=== PATIENT | male | born 1955 | race Caucasian/White ===

== ENCOUNTER 2022-10-31 20:28 | Observation (INO) | payer MEDICARE, SELFPAY ==
--- NOTE | ~2022-10-31 | CT_ITS ---
EXAMINATION: CT ANGIOGRAM NECK WITH CONTRAST CT ANGIOGRAM BRAIN WITH CONTRAST CLINICAL INFORMATION: Transient ischemic attack. COMPARISON: None. TECHNIQUE: Test bolus sequences followed by intravenous administration 70 mL of Omnipaque 350. Helical imaging was performed in the axial plane from the thoracic inlet to the skull vertex. Delayed postcontrast imaging of the head was also performed. The data was processed at the ct scan technologist workstation for generation of MIP sequences. Angled MIPs and volume rendered reformatted images were also generated at an offline 3D workstation under concurrent supervision. Stenoses are assessed in accordance with NASCET criteria unless otherwise indicated. This CT examination was performed using dose optimization techniques as appropriate, variously including the following: *Automated exposure control *Adjustment of mA and/or kV according to patient size (this includes techniques or standardized protocols for targeted exams where dose is matched to indication/reason for exam; i.e. extremities or head) *Use of iterative reconstruction technique DLP: 906 mGy-cm FINDINGS: BRAIN: There is no intracranial hemorrhage, hydrocephalus, extra-axial surface collection, midline shift, or other herniation pattern. Ewing to white matter differentiation is diffusely maintained without evidence of an evolved acute territorial infarct. The basilar cisterns are preserved. No significant soft tissue abnormality. No acute osseous abnormality. Small mucous retention cysts in the maxillary sinuses. No air-fluid levels. The mastoids and middle ear cavities are clear. 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 CERVICAL SOFT TISSUES AND LUNG APICES: Normal soft tissues of the neck. No pathologically enlarged lymph nodes. Patent airways. Normal thyroid gland. NECK CTA: There is a classic 3 vessel configuration of the aortic arch. Proximal arch vessels are non-stenotic. Dominant left vertebral artery. No significant ostial stenosis is visualized on either side. Both vertebral arteries are widely patent throughout their extracranial cervical course. Both common and internal carotid arteries are normal in course and caliber. Atherosclerotic plaques noted in the carotid bifurcations without significant stenoses. BRAIN CTA: There is normal opacification of major intracranial arteries. No focal flow-limiting stenosis nor discrete proximal large artery occlusion. Mild atherosclerotic disease of the internal carotid arteries. Timing of the contrast bolus allows assessment of the major dural venous sinuses, which all opacify normally. CT/CT angio head neck IMPRESSION: 1. No acute intracranial findings. 2. No acute arterial occlusions and no significant arterial stenoses within the head or neck.
[2022-10-31 20:38] VITALS: BP 178/92; PULSE 77; RESP 19; TEMP 36.4; O2SAT 97; BMI 31.6
--- NOTE | 2022-10-31 21:02 | ECG_ITS ---
Test Reason : WEAKNESS Blood Pressure : / mmHG Vent. Rate : 070 BPM Atrial Rate : 070 BPM P-R Int : 182 ms QRS Dur : 090 ms QT Int : 382 ms P-R-T Axes : 050 -49 013 degrees QTc Int : 412 ms Normal sinus rhythm Left axis deviation cannot exclude Inferior infarct , age undetermined Abnormal ECG No previous ECGs available Referred By: Chata Sanders Electronically Signed By:NIRALI WALLACE
--- NOTE | 2022-10-31 21:07 | ED.NEUROSD ---
HPI - Neuro Symptoms/Deficit General Chief Complaint: Weakness Stated Complaint: Stroke like symptoms Time Seen by Provider: 10/31/22 20:53 Source: patient Mode of arrival: ambulatory Limitations: no limitations History of Present Illness HPI Narrative: Patient comes to the emergency room complaining of 1 episode of dizziness, difficulty finding words and speaking, and complete loss of sensation and function of the left lower extremity. Patient states that all of this lasted approximately 30 seconds, for the dizziness, sensation that he was going to fall and hit the ground lasted 15 minutes. Of this happen approximately 2 weeks ago. Today, patient spoke to his sister, who is an ED nurse. Patient's sister explained to him that his symptoms sound like a TIA, and explained to the patient that this may be a precursor to a stroke. Therefore, patient decided to come to the emergency room. Patient states that he has history of hypertension and a AAA in the thoracic area, states that he has it checked every year, last time was at 4 cm. Patient denies chest pain or shortness of breath. Patient also states that he had similar TIA symptoms approximately 4-5 years ago. Related Data Allergies Allergy/AdvReac Type Severity Reaction Status Date / Time No Known Allergies Allergy Unverified 08/03/20 18:54 [No Known Allergies*] Review of Systems Review of Systems: Constitutional : No Weight loss, No Fever, No Chills, No Night Sweats, No Fatigue, No Malaise ENT/Mouth : No Hearing loss, No Ear Pain, No Nasal Congestion, No Sinus Pain, No Hoarseness, No sore throat, No Rhinorrhea, No Swallowing Difficulty Eyes: No Eye Pain, No Swelling, No Redness, No Foreign Body, No Discharge, No Vision Changes Cardiovascular : No Chest Pain, No SOB, No Dyspnea on Exertion, No Orthopnea, No Edema, No Palpitations Respiratory : No Cough, No Sputum, No Wheezing, No Smoke Exposure, No Dyspnea Gastrointestinal : No Nausea, No Vomiting, No Diarrhea, No Constipation, No abdominal Pain, No Hematochezia, No Melena Genitourinary : no irregular bleeding, No Dysuria, No Urinary Frequency, No Hematuria, No Urinary Incontinence, No Urgency, No Flank Pain, No Urinary Flow Changes, No Hesitancy Musculoskeletal : No joint pain, No Myalgias, No Joint Swelling Skin : No Skin Lesions, No rash Neuro : At this time, patient is asymptomatic, however, patient had TIA symptoms including severe dizziness, unable to find words and unable to speak, and complete loss of sensation and function in the left lower extremity Psych : No Anxiety/Panic, No Depression, No SI/HI/AH/VH, No Social Issues, Heme/Lymph: No Bruising, No Bleeding,No Lymphadenopathy Endocrine : No Polyuria, No Polydipsia, No Temperature Intolerance [facility] Past Medical History Medical History (Updated 11/01/22 @ 00:55 by Chata Sanders MD) HTN (hypertension) with goal to be determined Thoracic aortic aneurysm (TAA) Social History Social History Alcohol intake: never Smoked in Last 30 Days: No Use of substances other than those prescribed or required for medical reasons: No Advance Directives: No Advance Directives Information Provided: No Physical Exam Vital Signs: Vital Signs: Last Vital Signs Temp 97.9 F 11/01/22 00:13 Pulse 70 11/01/22 00:13 Resp 12 11/01/22 00:13 BP 156/93 H 11/01/22 00:13 Pulse Ox 98 11/01/22 00:13 O2 Del Method 11/01/22 00:13 BMI result Body Mass Index 31.6 Const: Other: Appearance: Alert. Oriented X3. No acute distress. Eyes: Pupils equal, round and reactive to light. ENT: Pharynx normal. Neck: Normal inspection. Neck supple. No lymph nodes noted. No crepitus CVS: Normal heart rate and rhythm. Pulses normal. Normal S1 and S2 Respiratory: No respiratory distress. Breath sounds normal. No Wheezing. No rales Abdomen: Soft and nontender. No rigidity. No distention. Skin: Skin warm and dry. Normal skin color. Normal skin turgor. Extremities: No lower extremity edema. No Lacerations. No Rash Neuro: Oriented X 3. No motor deficit. No sensory deficit. Moving all extremities. No slurred speech. CN 2 through 12 grossly intact Psych: calm, cooperative, normal affect Course Course Course Narrative: Patient's NIH score is within normal limits, CTA within normal limits. Discussed the patient with Dr. Bliss, patient will be admitted for further evaluation. Patient remains asymptomatic. BRAIN: There is no intracranial hemorrhage, hydrocephalus, extra-axial surface collection, midline shift, or other herniation pattern. Ewing to white matter differentiation is diffusely maintained without evidence of an evolved acute territorial infarct. The basilar cisterns are preserved. No significant soft tissue abnormality. No acute osseous abnormality. Small mucous retention cysts in the maxillary sinuses. No air-fluid levels. The mastoids and middle ear cavities are clear. 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 CERVICAL SOFT TISSUES AND LUNG APICES: Normal soft tissues of the neck. No pathologically enlarged lymph nodes. Patent airways. Normal thyroid gland. NECK CTA: There is a classic 3 vessel configuration of the aortic arch. Proximal arch vessels are non-stenotic. Dominant left vertebral artery. No significant ostial stenosis is visualized on either side. Both vertebral arteries are widely patent throughout their extracranial cervical course. Both common and internal carotid arteries are normal in course and caliber. Atherosclerotic plaques noted in the carotid bifurcations without significant stenoses. BRAIN CTA: There is normal opacification of major intracranial arteries. No focal flow-limiting stenosis nor discrete proximal large artery occlusion. Mild atherosclerotic disease of the internal carotid arteries. Timing of the contrast bolus allows assessment of the major dural venous sinuses, which all opacify normally. CT/CT angio head neck IMPRESSION: 1.? No acute intracranial findings. 2.? No acute arterial occlusions and no significant arterial stenoses within the head or neck. Medications Administered Discontinued Medications Generic Name Dose Route Start Last Admin Trade Name Freq PRN Reason Stop Dose Admin Iohexol 70 ml 10/31/22 23:32 10/31/22 23:33 Iohexol 350 Mg/Ml 100 Ml Infus..Btl IV 10/31/22 23:33 70 ml ONCE ONE Administration Medical Decision Making Medical Decision Making [facility] Narrative: Is the 2nd time the patient has TIA like symptoms. Patient has a significant history of AAA and hypertension. I discussed with the patient that he needs a thorough evaluation and admission has been considered. Differential Diagnosis Differential Diagnoses: The differential diagnosis associated with the presentation includes (TIA, paresthesias) Admission/Observation Consideration of admission/observation: Escalation of care including admission/observation considered (Patient likely had a TIA, this is the 2nd time that patient has similar symptoms. Patient admitted for further evaluation.) Consult Healthcare Provider Management of the patient was discussed with: Hospitalist (I discussed the patient with Dr. Bliss, we both agreed that the patient needs further evaluation) Lab Data [facility] Lab Attestation statement: I reviewed the patient's lab results. Result Diagrams: 10/31/22 21:53 10/31/22 21:53 Labs: Lab Results 10/31/22 10/31/22 10/31/22 Range/Units 21:53 21:53 21:53 WBC 6.4 (4.8-10.8) X10*3/uL RBC 4.49 L (4.60-5.80) X10*6/uL Hgb 13.0 L (14.0-18.0) g/dl Hct 39.0 L (42.0-52.0) % MCV 86.9 (80.0-98.0) fL MCH 29.0 (27.0-33.0) pg MCHC 33.3 (31.0-36.0) g/dl RDW 12.3 (11.0-16.0) % Plt Count 193 (160-400) X10*3/uL MPV 9.8 (9.4-12.4) fL Immature Gran % (Auto) 0.3 (0.0-0.4) % Neut % (Auto) 58.4 (45-73) % Lymph % (Auto) 28.4 (20-40) % [place] % (Auto) 9.3 (2-11) % Eos % (Auto) 3.1 (0-4) % Baso % (Auto) 0.5 (0-2) % Lymph # (Auto) 1.8 (1.2-4.9) X10*3/uL [place] # (Auto) 0.6 (0.1-1.2) X10*3/uL Eos # (Auto) 0.2 (0.0-0.4) X10*3/uL Baso # (Auto) 0.0 (0.0-0.2) X10*3/uL Abs Immat Gran (auto) 0.02 (0.00-0.03) X10*3/uL Absolute Neuts (auto) 3.8 (2.0-8.3) x10*3/uL Absolute Nucleated RBC 0.000 (0.0-0.012) X10*3/uL Nucleated RBC % (auto) 0.0 (0.0-0.2) /100WBC Sodium 138 (135-145) mmol/L Potassium 4.0 (3.3-5.1) mmol/L Chloride 107 (96-108) mmol/L Carbon Dioxide 24 (22-29) mmol/L Anion Gap 11 L (12-20) BUN 14 (9-16) mg/dL Creatinine 0.80 (0.5-1.4) mg/dL Estim Creat Clear Calc 117.5 Estimated GFR > 60 Random Glucose 118 H (60-115) mg/dL Calcium 9.5 (8.4-10.2) mg/dL Magnesium 1.7 (1.6-2.6) mg/dL Total Bilirubin 0.3 (0.0-1.0) mg/dL Direct Bilirubin < 0.2 (0.0-0.5) mg/dL AST 25 (5-37) U/L ALT 32 (0-40) U/L Alkaline Phosphatase 73 (39-117) U/L Troponin I High Sens 4.5 (<3.5-35.0) ng/L Total Protein 6.7 (6.5-8.0) g/dL Albumin 4.2 (3.5-5.0) g/dL Urine Color Urine Appearance Urine pH (5.0-9.0) Ur Specific [place] (1.005-1.025) Urine Protein (Neg-Trace) mg/dL Urine Glucose (UA) (Negative) mg/dL Urine Ketones (Negative) mg/dL Urine Blood (Negative) Urine Nitrite (Negative) Ur Leukocyte Esterase (Negative) COVID-19 ([facility]) (Negative) COVID-19 Clin Com 10/31/22 10/31/22 Range/Units 21:53 21:53 WBC (4.8-10.8) X10*3/uL RBC (4.60-5.80) X10*6/uL Hgb (14.0-18.0) g/dl Hct (42.0-52.0) % MCV (80.0-98.0) fL MCH (27.0-33.0) pg MCHC (31.0-36.0) g/dl RDW (11.0-16.0) % Plt Count (160-400) X10*3/uL MPV (9.4-12.4) fL Immature Gran % (Auto) (0.0-0.4) % Neut % (Auto) (45-73) % Lymph % (Auto) (20-40) % [place] % (Auto) (2-11) % Eos % (Auto) (0-4) % Baso % (Auto) (0-2) % Lymph # (Auto) (1.2-4.9) X10*3/uL [place] # (Auto) (0.1-1.2) X10*3/uL Eos # (Auto) (0.0-0.4) X10*3/uL Baso # (Auto) (0.0-0.2) X10*3/uL Abs Immat Gran (auto) (0.00-0.03) X10*3/uL Absolute Neuts (auto) (2.0-8.3) x10*3/uL Absolute Nucleated RBC (0.0-0.012) X10*3/uL Nucleated RBC % (auto) (0.0-0.2) /100WBC Sodium (135-145) mmol/L Potassium (3.3-5.1) mmol/L Chloride (96-108) mmol/L Carbon Dioxide (22-29) mmol/L Anion Gap (12-20) BUN (9-16) mg/dL Creatinine (0.5-1.4) mg/dL Estim Creat Clear Calc Estimated GFR Random Glucose (60-115) mg/dL Calcium (8.4-10.2) mg/dL Magnesium (1.6-2.6) mg/dL Total Bilirubin (0.0-1.0) mg/dL Direct Bilirubin (0.0-0.5) mg/dL AST (5-37) U/L ALT (0-40) U/L Alkaline Phosphatase (39-117) U/L Troponin I High Sens (<3.5-35.0) ng/L Total Protein (6.5-8.0) g/dL Albumin (3.5-5.0) g/dL Urine Color Yellow Urine Appearance Clear Urine pH 7.0 (5.0-9.0) Ur Specific [place] 1.020 (1.005-1.025) Urine Protein Negative (Neg-Trace) mg/dL Urine Glucose (UA) Negative (Negative) mg/dL Urine Ketones Negative (Negative) mg/dL Urine Blood Negative (Negative) Urine Nitrite Negative (Negative) Ur Leukocyte Esterase Negative (Negative) COVID-19 ([facility]) Negative (Negative) COVID-19 Clin Com See Note Independent Interpretation I performed an independent interpretation of an: EKG (My interpretation is normal sinus rhythm, heart rate 70, no ST segment depression or elevation, no T-wave inversion, QTC 112) and CT Scan (My interpretation of the CTA of neck and brain: No acute findings.) NIH Stroke Scale Level of Consciousness: Alert Level of Consciousness Questions: Answers both questions correctly Level of Consciousness Commands: Performs both tasks correctly Best Gaze: Normal Visual: No visual loss Facial Palsy: Normal Motor Arm (Right): No drift Motor Arm (Left): No drift Motor Leg (Right): No drift Motor Leg (Left): No drift Limb Ataxia: Absent Sensory: Normal Best Language: No aphasia Dysarthia: Normal Extinction and Inattention: No abnormality Score: 0 Discharge Plan Discharge Clinical Impression: Brain TIA Patient Disposition: Admitted As Inpatient
[2022-10-31 22:01] LABS: MANUAL DIFF FLAG NO
[2022-10-31 22:03] LABS: Basophils Percent Auto 0.5 % (0-2); Eosinophils Absolute Auto 0.2 X10*3/uL (0.0-0.4); Eosinophils Percent Auto 3.1 % (0-4); Imm Gran Abs Auto 0.02 X10*3/uL (0.00-0.03); Imm Gran Pct Auto 0.3 % (0.0-0.4); Lymphocytes Absolute Auto 1.8 X10*3/uL (1.2-4.9); Lymphocytes Percent Auto 28.4 % (20-40); Mean Corpuscular HGB Conc 33.3 g/dl (31.0-36.0); Mean Corpuscular Volume 86.9 fL (80.0-98.0); Mean Platelet Volume 9.8 fL (9.4-12.4); Monocytes Absolute Auto 0.6 X10*3/uL (0.1-1.2); Monocytes Percent Auto 9.3 % (2-11); Neutrophils Absolute Auto 3.8 x10*3/uL (2.0-8.3); Neutrophils Percent Auto 58.4 % (45-73); Platelet Count 193 X10*3/uL (160-400); Red Blood Count 4.49 X10*6/uL (4.60-5.80); Red Cell Distribution Width 12.3 % (11.0-16.0); White Blood Count 6.4 X10*3/uL (4.8-10.8)
[2022-10-31 22:04] LABS: Appearance Urine Clear; Color Urine Yellow; Glucose Urine UA Negative (Negative); Leukocyte Esterase Urine Negative (Negative); Nitrite Urine Negative (Negative); Urine Blood Negative (Negative); Urine Ketones Negative (Negative); Urine Protein Negative (Neg-Trace)
[2022-10-31 22:12] VITALS: BP 171/98; PULSE 75; RESP 16; O2SAT 92
[2022-10-31 22:19] LABS: COVID-19 Test Negative (Negative)
[2022-10-31 22:35] LABS: Sodium 138 mmol/L (135-145); Troponin-I High Sensitivity 4.5 ng/L (<3.5-35.0)
[2022-10-31 22:36] LABS: Alanine Aminotransferase 32 U/L (0-40); Albumin Level 4.2 g/dL (3.5-5.0); Alkaline Phosphatase 73 U/L (39-117); Anion Gap 11 (12-20); Aspartate Amino Transferase 25 U/L (5-37); Bilirubin Direct < 0.2 mg/dL (0.0-0.5); Blood Urea Nitrogen 14 mg/dL (9-16); Calcium 9.5 mg/dL (8.4-10.2); Carbon Dioxide 24 mmol/L (22-29); Chloride 107 mmol/L (96-108); Creatinine Clr Calc Pharmacy 117.5; Estimated Glomerular Filt Rate > 60; Glucose Random 118 mg/dL (60-115); Magnesium 1.7 mg/dL (1.6-2.6); Total Protein 6.7 g/dL (6.5-8.0)
[2022-10-31] MEDS: iohexoL 350 MG/ML 100 ML INFUS..BTL 70 ML IV (23:33)
--- NOTE | 2022-10-31 23:37 | PC.NURSE ---
Patient states he was told to come in. Last symptoms of weakness, stroke like symptoms ere of concern to patient a couple of weeks ago. Symptoms have resolved since last incident a couple of weeks ago. Patient states he wanted to get checked since he is not able to see PCP until end of month. No apparent distress, denies pain, denies weakness.
[2022-11-01 00:13] VITALS: BP 156/93; PULSE 70; RESP 12; TEMP 36.6; O2SAT 98
[2022-11-01 01:15] LABS: Bilirubin Total 0.3 mg/dL (0.0-1.0)
--- NOTE | 2022-11-01 01:30 | P.HPHOSP_ITS ---
History of Present Illness Date of Service: 11/01/22 Chief Complaint: TIA 67-year-old male with with past medical history of thoracic aortic aneurysm, presents to the hospital with complaint TIA like symptoms. Patient reports about 2 weeks ago he had symptoms of loss of speech, difficulty finding words that lasted about a minute, the next day he then developed dizziness as well as difficulty using his left lower extremity. Patient reports no recurrence over the next 2 weeks, reports no change in vision. he does report an episode similar to this about 7 years prior. Workup at that time was negative. He reports no palpitations, no chest pain, no abdominal pain no nausea or vomiting, no diarrhea or constipation, no urinary symptoms and no lower extremity edema. On arrival patient hemodynamically stable no significant abnormal vitals Labs are significant for hemoglobin of 13, medical 39, labs otherwise unremarkable, Head and neck CT angiogram shows no acute intracranial findings, no acute ar terial occlusion and no significant arterial stenosis within the head or neck Review of Systems Review of Systems: Yes all other systems are reviewed and are negative [facility] Medical History HTN (hypertension) with goal to be determined Thoracic aortic aneurysm (TAA) Social History Alcohol intake: never Smoked in Last 30 Days: No Use of substances other than those prescribed or required for medical reasons: No Advance Directives: No Advance Directives Information Provided: No Meds Allergies Allergy/AdvReac Type Severity Reaction Status Date / Time No Known Allergies Allergy Unverified 08/03/20 18:54 [No Known Allergies*] Physical Exam Vital Signs and Narrative: Vital Signs: Last Vital Signs Temp 97.9 F 11/01/22 00:13 Pulse 70 11/01/22 00:13 Resp 12 11/01/22 00:13 BP 156/93 H 11/01/22 00:13 Pulse Ox 98 11/01/22 00:13 O2 Del Method 11/01/22 00:13 BMI result Body Mass Index 31.6 Const: General: cooperative and no acute distress Orientation/consciousness: patient oriented x3 Eyes: General: appearance normal, both eyes and all related structures Pupils: Equal, round and reactive pupils present Resp: Effort & Inspection: normal respiratory effort Auscultation: clear to auscultation bilaterally Cardio: Rate: regular rate Rhythm: regular rhythm GI: Palpation (GI): Soft to palpation Auscultation: normal bowel sounds Skin: General skin exam: no rashes or lesions noted Neuro: Other: No neurological deficits, strength is 5/5 in all extremities General: patient oriented x3 Cranial nerves: Yes Equal, round and reactive pupils present Cognition (Neuro): normal cognition Extrem: General: Yes normal to inspection and Yes no pedal edema Results Labs CBC and Chem 7: 10/31/22 21:53 10/31/22 21:53 Labs: Laboratory Results - last 24 hr 10/31/22 10/31/22 10/31/22 21:53 21:53 21:53 MCV 86.9 MCH 29.0 MCHC 33.3 RDW 12.3 Plt Count 193 MPV 9.8 Immature Gran % (Auto) 0.3 Neut % (Auto) 58.4 Lymph % (Auto) 28.4 [place] % (Auto) 9.3 Eos % (Auto) 3.1 Baso % (Auto) 0.5 Lymph # (Auto) 1.8 [place] # (Auto) 0.6 Eos # (Auto) 0.2 Baso # (Auto) 0.0 Abs Immat Gran (auto) 0.02 Absolute Neuts (auto) 3.8 Absolute Nucleated RBC 0.000 Nucleated RBC % (auto) 0.0 Anion Gap 11 L Estim Creat Clear Calc 117.5 Estimated GFR > 60 Random Glucose 118 H Calcium 9.5 Magnesium 1.7 Total Bilirubin 0.3 Direct Bilirubin < 0.2 AST 25 ALT 32 Alkaline Phosphatase 73 Troponin I High Sens 4.5 Total Protein 6.7 Albumin 4.2 Urine Color Urine Appearance Urine pH Ur Specific [place] Urine Protein Urine Glucose (UA) Urine Ketones Urine Blood Urine Nitrite Ur Leukocyte Esterase COVID-19 ([facility]) COVID-19 Clin Com 10/31/22 10/31/22 21:53 21:53 MCV MCH MCHC RDW Plt Count MPV Immature Gran % (Auto) Neut % (Auto) Lymph % (Auto) [place] % (Auto) Eos % (Auto) Baso % (Auto) Lymph # (Auto) [place] # (Auto) Eos # (Auto) Baso # (Auto) Abs Immat Gran (auto) Absolute Neuts (auto) Absolute Nucleated RBC Nucleated RBC % (auto) Anion Gap Estim Creat Clear Calc Estimated GFR Random Glucose Calcium Magnesium Total Bilirubin Direct Bilirubin AST ALT Alkaline Phosphatase Troponin I High Sens Total Protein Albumin Urine Color Yellow Urine Appearance Clear Urine pH 7.0 Ur Specific [place] 1.020 Urine Protein Negative Urine Glucose (UA) Negative Urine Ketones Negative Urine Blood Negative Urine Nitrite Negative Ur Leukocyte Esterase Negative COVID-19 ([facility]) Negative COVID-19 Clin Com See Note Imaging Radiologist's Impressions: Impressions Head/Neck CTA 10/31/22 23:40 IMPRESSION: 1. No acute intracranial findings. 2. No acute arterial occlusions and no significant arterial stenoses within the head or neck. Assessment and Plan (1) Brain TIA: Status: Acute Plan 67-year-old male past medical history of thoracic aneurysm stable presents the hospital with TIA like symptoms # TIA - symptoms with left lower extremity weakness, dizziness, as well as dysarthria - will obtain MRI in a.m. - neurology consulted - lipid panel - stroke education DVT prophylaxis: Early ambulation Time Spent With Patient Time: Total time managing care of this patient today ____ minutes. Quality Stroke Does the patient have a stroke diagnosis?: No VTE Prior VTE?: No VTE Risk Level:: Medical - low VTE Device Contraindication: Treatment Not Indicated VTE Drug Contraindication: Treatment Not Indicated
[2022-11-01 04:04] VITALS: BP 161/89; PULSE 67; RESP 16; TEMP 36.6; O2SAT 97
--- NOTE | 2022-11-01 04:11 | PC.NURSE ---
neuro intact, patient a&ox4, pt speaks in full sentences, no apparent distress, denies weakness
--- NOTE | 2022-11-01 07:45 | PHA.MEDREC ---
Pharmacy Consult ? Medication Reconciliation Pharmacy has completed the medication reconciliation. Patient states prescription for oxycodone is written for 1-2 tablets every 6 hours as needed for pain, but 1 tablet is usually enough.
--- NOTE | 2022-11-01 08:53 | MHC.CM.PN ---
Met with patient in regards to discharge planning. Patient lives with his , ambulates independently and had no services prior to coming to the hospital. No services anticipated to be needed because patient is not homebound. PCP verified. Patient received 4 Pfizer vaccines. Obs notice explained and signed. Patient's car is in the parking lot and patient anticipates driving himself home when medically stable. Continue to monitor for d/c needs.
--- NOTE | 2022-11-01 09:29 | PC.NURSE ---
attempt to contact nurse, sales secretary states pt is transfering one of her pt out and will call back
[2022-11-01 11:23] VITALS: BP 179/80; PULSE 68; RESP 12; TEMP 36.4; O2SAT 97
[2022-11-01] MEDS: Aspirin Enteric Coated 81 MG TABLET.DR PO (13:13)
--- NOTE | 2022-11-01 14:22 | P.CNNE_ITS ---
History of Present Illness Data of Consult Service Date: 11/01/22 Primary Care Provider: Unknown Physician HPI Reason for consult: Possible TIA This is a 67-year-old right handed male with with history of thoracic aortic aneurysm, hypertension and hyperlipidemia presents to the hospital for evaluation of TIA like symptoms.?2 weeks ago he had Sudden inability to get words out that lasted 30 seconds with no other associated symptoms. 2 days later getting out of his truck he had vertigo that lasted 15-20 min. where he had to hold onto things to keep from falling. There was no associated nausea vomiting hearing loss or other neurological symptoms. The next day while getting into the truck suddenly his left leg felt momentarily weak like it would collapsed and this lasted about 15 seconds. He has felt fine since then. Yesterday he reported the symptoms to his sister who is a nurse who urged him to come into the hospital for workup. He had similar symptoms of inability to get words out for 10 seconds in and neck had a complete workup at that time which was negative except for the incidental finding of the thoracic aortic aneurysm. He reports no palpitations, no chest pain, no abdominal pain no nausea or vomiting. Head CT and Head and neck CT angiogram shows no acute intracranial findings, no acute arterial occlusion and no significant arterial stenosis within the head or neck Review of Systems Review of Systems: Constitutional : No Weight loss, No Fever, No Chills, No Night Sweats, No Fatigue, No Malaise ENT/Mouth : No Hearing loss, No Ear Pain, No Nasal Congestion, No Sinus Pain, No Hoarseness, No sore throat, No Rhinorrhea, No Swallowing Difficulty Eyes: No Eye Pain, No Swelling, No Redness, No Foreign Body, No Discharge, No Vision Changes Cardiovascular : No Chest Pain, No SOB, No Dyspnea on Exertion, No Orthopnea, No Edema, No Palpitations Respiratory : No Cough, No Sputum, No Wheezing, No Smoke Exposure, No Dyspnea Gastrointestinal : No Nausea, No Vomiting, No Diarrhea, No Constipation, No abdominal Pain, No Hematochezia, No Melena Genitourinary : no irregular bleeding, No Dysuria, No Urinary Frequency, No Hematuria, No Urinary Incontinence, No Urgency, No Flank Pain, No Urinary Flow Changes, No Hesitancy Musculoskeletal : No joint pain, No Myalgias, No Joint Swelling Skin : No Skin Lesions, No rash Neuro : At this time, patient is asymptomatic, however, patient had TIA symptoms including severe dizziness, unable to find words and unable to speak, and complete loss of sensation and function in the left lower extremity Psych : No Anxiety/Panic, No Depression, No SI/HI/AH/VH, No Social Issues, Heme/Lymph: No Bruising, No Bleeding,No Lymphadenopathy Endocrine : No Polyuria, No Polydipsia, No Temperature Intolerance Yes all other systems are reviewed and are negative [facility] Past Medical History Medical History HTN (hypertension) with goal to be determined Thoracic aortic aneurysm (TAA) Social History Social History Household Members: Spouse Housing: House Do you presently have visiting nurse or other home services: No Alcohol intake: never Patient Tobacco Use Status: Never used Tobacco service: No Current occupational status: employed Meds Allergies Allergy/AdvReac Type Severity Reaction Status Date / Time No Known Allergies Allergy Unverified 08/03/20 18:54 [No Known Allergies*] Active Medications: Current Medications Acetaminophen (Acetaminophen 325 Mg Tablet) 650 mg PO Q6H PRN PRN Reason: Pain, Mild (Pain Scale 1-3) Aspirin (Aspirin Enteric Coated 81 Mg Tablet.) 81 mg PO DAILY COUNT INCLUDES THE [facility] Last Admin: 11/01/22 13:13 Dose: 81 mg Ondansetron HCl (Ondansetron Hcl 4 Mg/2 Ml Vial) 4 mg IVPUSH Q8H PRN PRN Reason: Nausea and Vomiting Pravastatin Sodium (Pravastatin Sodium 40 Mg Tablet) 40 mg PO BEDTIME COUNT INCLUDES THE [facility] Home Medications Medication Instructions Recorded Confirmed Last Taken Type aspirin 81 mg tablet,delayed 81 mg PO DAILY 11/01/22 11/01/22 10/31/22 History release atorvastatin 20 mg tablet 20 mg PO DAILY 11/01/22 11/01/22 10/31/22 History atorvastatin 40 mg tablet 40 mg PO DAILY 11/01/22 11/01/22 10/31/22 History fenofibrate nanocrystallized 145 145 mg PO DAILY 11/01/22 11/01/22 10/31/22 History mg tablet lisinopril 40 mg tablet 40 mg PO DAILY 11/01/22 11/01/22 10/31/22 History multivitamin 1 tab PO DAILY 11/01/22 11/01/22 10/31/22 History oxycodone 5 mg tablet 5 mg PO Q6H PRN pain 11/01/22 11/01/22 Unknown History tamsulosin 0.4 mg capsule 0.8 mg PO DAILY 11/01/22 11/01/22 10/31/22 History Physical Exam Vital Signs: Vital Signs: Last Vital Signs Temp 97.6 F 11/01/22 11:23 Pulse 68 11/01/22 11:23 Resp 12 11/01/22 11:23 BP 179/80 H 11/01/22 11:23 Pulse Ox 97 11/01/22 11:23 O2 Del Method 11/01/22 11:23 BMI result Body Mass Index 31.6 Const: Other: Appearance: Alert. Oriented X3. No acute distress. Eyes: Pupils equal, round and reactive to light. ENT: Pharynx normal. Neck: Normal inspection. Neck supple. No lymph nodes noted. No crepitus CVS: Normal heart rate and rhythm. Pulses normal. Normal S1 and S2 Respiratory: No respiratory distress. Breath sounds normal. No Wheezing. No ral es Abdomen: Soft and nontender. No rigidity. No distention. Skin: Skin warm and dry. Normal skin color. Normal skin turgor. Extremities: No lower extremity edema. No Lacerations. No Rash Neuro: Oriented X 3. No motor deficit. No sensory deficit. Moving all extremities. No slurred speech. CN 2 through 12 grossly intact Psych: calm, cooperative, normal affect General: cooperative and no acute distress Orientation/consciousness: patient oriented x3 Eyes: General: appearance normal, both eyes and all related structures Pupils: Equal, round and reactive pupils present Resp: Effort & Inspection: normal respiratory effort Auscultation: clear to auscultation bilaterally Cardio: Rate: regular rate Rhythm: regular rhythm GI: Palpation (GI): Soft to palpation Auscultation: normal bowel sounds Skin: General skin exam: no rashes or lesions noted Neuro: Other: Normal neurological examination with no neurological deficits, strength is 5/5 in all extremities General: patient oriented x3 Cranial nerves: Yes Equal, round and reactive pupils present Cognition (Neuro): normal cognition Extrem: General: Yes normal to inspection and Yes no pedal edema Results Labs CBC & Chem 7: 10/31/22 21:53 10/31/22 21:53 Labs: Short CBC 10/31/22 Range/Units 21:53 WBC 6.4 (4.8-10.8) X10*3/uL Hgb 13.0 L (14.0-18.0) g/dl Hct 39.0 L (42.0-52.0) % Plt Count 193 (160-400) X10*3/uL BMP 10/31/22 21:53 Sodium 138 Potassium 4.0 Chloride 107 Carbon Dioxide 24 BUN 14 Creatinine 0.80 Calcium 9.5 Liver Function 10/31/22 Range/Units 21:53 Total Bilirubin 0.3 (0.0-1.0) mg/dL Direct Bilirubin < 0.2 (0.0-0.5) mg/dL AST 25 (5-37) U/L ALT 32 (0-40) U/L Alkaline Phosphatase 73 (39-117) U/L Albumin 4.2 (3.5-5.0) g/dL Urine 10/31/22 Range/Units 21:53 Urine Color Yellow Urine Appearance Clear Urine pH 7.0 (5.0-9.0) Ur Specific [place] 1.020 (1.005-1.025) Urine Protein Negative (Neg-Trace) mg/dL Urine Glucose (UA) Negative (Negative) mg/dL Assessment and Plan (1) Brain TIA: Status: Acute Symptoms suggestive of TIA in different vascular territories with normal CTA of head and neck. Recommendation: Outpatient transesophageal echocardiogram with bubble study. Aspirin 81 mg a day. Continue it or of a statin and blood pressure medications. From a neurological perspective he can be discharged from the hospital. Plan 67-year-old male past medical history of thoracic aneurysm stable presents the hospital with TIA like symptoms # TIA - symptoms with left lower extremity weakness, dizziness, as well as dysarthria - will obtain MRI in a.m. - neurology consulted - lipid panel - stroke education DVT prophylaxis: Early ambulation Time Spent With Patient Time: Total time managing care of this patient today ____ minutes. Procedures Date of Service Date of Service: 11/01/22
--- NOTE | 2022-11-01 15:24 | PM.DS ---
DS: Providers Provider Date of Service: 11/01/22 Date of admission: 11/01/22 01:29 Primary care physician: Unknown Physician Consults: 11/01/22 01:27 Consult to Neurology Routine Consulting Provider: [facility] Reason for consultation: TIA symptoms DS: Diagnosis Discharge Diagnosis (1) Brain TIA: Status: Acute DS: Summary Hospital Course Hospital Course: 67-year-old male with with past medical history of thoracic aortic aneurysm, presents to the hospital with complaint TIA like symptoms.? Patient reports about 2 weeks ago he had symptoms of loss of speech, difficulty finding? words that lasted about a minute, the next day he then developed dizziness as well as difficulty using his left lower extremity.? Patient reports no recurrence? over the next 2 weeks, reports no change in vision.? he does report an episode similar to this about 7 years prior.? Workup at that time was negative.? He reports no palpitations, no chest pain, no abdominal pain no nausea or vomiting, no diarrhea or constipation, no urinary symptoms and no lower extremity edema.? On arrival patient hemodynamically stable no significant abnormal vitals Labs are significant for hemoglobin of 13, medical 39, labs otherwise unremarkable, Head and neck CT angiogram shows no acute intracranial findings, no acute arterial occlusion and no significant arterial stenosis within the head or neck. Hospital course: Patient admitted for TIA: Workup including CT head seems negative, seen by Neurology says patient is currently asymptomatic-recommended further workup includingOutpatient transesophageal echocardiogram with bubble? study. Continue his aspirin, statin and blood pressure medications out patiently further management outpatient as per PCP. Above management discussed with the patient in detail and he understand and in agreement with the plan, assessment and plan coordination time spent 50 minute. Time Spent with Patient Time attestation: Total time managing care of this patient today ____ minutes. Discharge coordination time: Greater than 30 minutes Quality: Safe Use of Opioids Does Pt have an Active Cancer Diagnosis on the Problem List?: No Quality: Stroke Does the patient have a stroke diagnosis?: No Physical Exam Vital Signs: Vital Signs: Last Vital Signs Temp 97.6 F 11/01/22 11:23 Pulse 68 11/01/22 11:23 Resp 12 11/01/22 11:23 BP 179/80 H 11/01/22 11:23 Pulse Ox 97 11/01/22 11:23 O2 Del Method 11/01/22 11:23 BMI result Body Mass Index 31.6 Appearance: Alert.? Oriented X3.? not in distress.? Eyes: Pupils equal, round and reactive to light.? Sclera nonicteric.? ENT: Pharynx normal.? Moist mucous membranes. cvs: rrr, [id number] , no murmur res: clear to auscultation ,no rhonchii or wheezing abd: no rebound or guarding ,nt, bs present. ext pulses present , no cyanosis ,Gait seems fine . neuro: axo3 , nonfocal. DS: Data Data Completed and Pending Labs on day of discharge: Laboratory Results - last 24 hr 10/31/22 10/31/22 10/31/22 21:53 21:53 21:53 WBC 6.4 RBC 4.49 L Hgb 13.0 L Hct 39.0 L MCV 86.9 MCH 29.0 MCHC 33.3 RDW 12.3 Plt Count 193 MPV 9.8 Immature Gran % (Auto) 0.3 Neut % (Auto) 58.4 Lymph % (Auto) 28.4 [place] % (Auto) 9.3 Eos % (Auto) 3.1 Baso % (Auto) 0.5 Lymph # (Auto) 1.8 [place] # (Auto) 0.6 Eos # (Auto) 0.2 Baso # (Auto) 0.0 Abs Immat Gran (auto) 0.02 Absolute Neuts (auto) 3.8 Absolute Nucleated RBC 0.000 Nucleated RBC % (auto) 0.0 Sodium 138 Potassium 4.0 Chloride 107 Carbon Dioxide 24 Anion Gap 11 L BUN 14 Creatinine 0.80 Estim Creat Clear Calc 117.5 Estimated GFR > 60 Random Glucose 118 H Calcium 9.5 Magnesium 1.7 Total Bilirubin 0.3 Direct Bilirubin < 0.2 AST 25 ALT 32 Alkaline Phosphatase 73 Troponin I High Sens 4.5 Total Protein 6.7 Albumin 4.2 Urine Color Urine Appearance Urine pH Ur Specific [place] Urine Protein Urine Glucose (UA) Urine Ketones Urine Blood Urine Nitrite Ur Leukocyte Esterase COVID-19 ([facility]) COVID-19 Clin Com 10/31/22 10/31/22 21:53 21:53 WBC RBC Hgb Hct MCV MCH MCHC RDW Plt Count MPV Immature Gran % (Auto) Neut % (Auto) Lymph % (Auto) [place] % (Auto) Eos % (Auto) Baso % (Auto) Lymph # (Auto) [place] # (Auto) Eos # (Auto) Baso # (Auto) Abs Immat Gran (auto) Absolute Neuts (auto) Absolute Nucleated RBC Nucleated RBC % (auto) Sodium Potassium Chloride Carbon Dioxide Anion Gap BUN Creatinine Estim Creat Clear Calc Estimated GFR Random Glucose Calcium Magnesium Total Bilirubin Direct Bilirubin AST ALT Alkaline Phosphatase Troponin I High Sens Total Protein Albumin Urine Color Yellow Urine Appearance Clear Urine pH 7.0 Ur Specific [place] 1.020 Urine Protein Negative Urine Glucose (UA) Negative Urine Ketones Negative Urine Blood Negative Urine Nitrite Negative Ur Leukocyte Esterase Negative COVID-19 ([facility]) Negative COVID-19 Clin Com See Note Imaging Chest x-ray: Radiologist's impression: ITS Impressions Head/Neck CTA 10/31/22 23:40 IMPRESSION: 1. No acute intracranial findings. 2. No acute arterial occlusions and no significant arterial stenoses within the head or neck. Discharge Plan Discharge Patient Disposition: Home, Self-Care Discharge Diagnosis: possible tia Referrals: Physician,Unknown J [Primary Care Provider] - 1 Week Discharge Medications: New amlodipine 2.5 mg tablet 2.5 mg PO DAILY Qty: 30 0RF Continued atorvastatin 40 mg tablet 40 mg PO DAILY Rx Instructions: in addition to 20 mg dose atorvastatin 20 mg tablet 20 mg PO DAILY Rx Instructions: in addition to 40 mg dose tamsulosin 0.4 mg capsule 0.8 mg PO DAILY lisinopril 40 mg tablet 40 mg PO DAILY oxycodone 5 mg tablet 5 mg PO Q6H PRN (Reason: pain) fenofibrate nanocrystallized 145 mg tablet 145 mg PO DAILY multivitamin Tablet 1 tab PO DAILY aspirin 81 mg Tablet,Delayed Release (Dr/Ec) 81 mg PO DAILY Discharge Orders: Discharge Order (Routine); Ordered 11/01/22 Ordered By: Chio Goldstein Diet: Advance to usual diet Activity on Discharge: As tolerated Stand Alone Forms: Patient Portal Discharge page Care Plan Goals: Patient admitted for TIA: Workup including CT head seems negative, seen by Neurology says patient is currently asymptomatic-recommended further workup includingOutpatient transesophageal echocardiogram with bubble? study. Continue his aspirin, statin and blood pressure medications out patiently further management outpatient as per PCP. Health Concerns: As above. Plan of Treatment: As above. Assessment: As above. Patient Instructions: Transient Ischemic Attack (DC)
--- NOTE | 2022-11-01 15:49 | MHC.CM.PN ---
DP: PT MEDICALLY CLEARED FOR DC HOME, NO SERVICES. CAR IN LOT, WILL DRIVE SELF HOME.
[2022-11-01] MEDS: amLODIPine Besylate 2.5 MG TABLET PO (15:55)
== END 2022-11-01 16:08 | disposition home or self-care (01) ==
LOC: HO.ED 11-01 00:55 → HO.EDOVER 11-01 01:45 → HO.IMC 11-01 08:37
PROVIDERS: Admitting Provider Internal Medicine; Emergency Provider Emergency Medicine; PCP Internal Medicine; Visit Provider Internal Medicine
DX: R42 Dizziness and giddiness (principal); R53.1 Weakness; R47.1 Dysarthria and anarthria; Z20.822 Contact with and (suspected) exposure to COVID-19; Z79.899 Other long term (current) drug therapy
CPT/HCPCS: 36415; 70496; 70498; 80048; 80076; 81003; 83735; 84484; 85025; 87635; 93005; 96374; 96375; 99219; 99285; Q9967

== ENCOUNTER 2024-12-20 10:39 | Outpatient (AMB) | payer MEDICARE, SELFPAY ==
--- NOTE | 2024-12-20 10:50 | A.OFFVIS_ITS ---
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 He denies numbness or tingling. Denies prior surgeries to his left knee. injury at gym Patient has tried Tylenol PRN with relief. 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 He denies numbness or tingling. Denies prior surgeries to his left knee. injury at gym Patient has tried Tylenol PRN with relief. He did have a right knee arthroscopy with ri approximately 10 years ago. This was for a medial meniscus repair. He reports feeling similar symptoms. Now he describes sharp pain in the medial aspect of his left knee while twisting. [facility] Medical History HTN (hypertension) with goal to be determined Thoracic aortic aneurysm (TAA) Social History Household Members: Spouse Housing: House Do you presently have visiting nurse or other home services: No Alcohol intake: never Patient Tobacco Use Status: Never used Tobacco service: No Current occupational status: employed Physical Exam Vital Signs: BMI result Body Mass Index 31.4 Extrem Other: Full range of motion left knee with tenderness palpation over the medial joint line and a positive medial Abbi's. Stable to varus and valgus stress. Stable Dale's. Results Reviewed Results Reviewed: I personally reviewed relevant radiographs. Unremarkable left knee radiographs Assessment & Plan Assessment & Plan (1) Internal derangement of left knee: Code(s): M23.92 - Unspecified internal derangement of left knee Category: Medical Plan: Left knee with sharp medial Abbi's for 6 weeks without improvement. He is an active in his x-rays are normal. He has been taking NSAIDs and not improving. I recommend MRI to assess. Orders: Orders XR knee LT 3V Today M25.562 - Pain in left knee XR knee RT 1V Today M25.569 - Pain in unspecified knee MR knee LT wo con Today M23.92 - Unspecified internal derangement of left knee Medications: Discontinued amlodipine Discontinued Reason: Patient Completed Course 2.5 mg PO DAILY 30 tabs 0RF Coding Level of Care Code New Pt Level 3 (49153) Diagnoses Internal derangement of left knee M23.92
[2024-12-20 10:56] VITALS: BMI 31.4
--- OUTSIDE RECORDS SUMMARY | 2024-12-20 11:29 | XMS_ITS | Clinical Summary ---
Author Organization [facility] [address] Address [address] [place] [address] Phone Care Team Providers Care Commutator Assembler Name Role Phone Ariana Spear MD Primary Care Prov ider Allergies No known active allergies Medications Medication Sig Dispensed Refills Start Date End Date Status aspirin (ASPIR-81 ORAL) Take by mouth. Active multivit-min/iron /folic acid/K (ADULTS MULTIVITAMIN ORAL) Take by mouth. Active hydrOXYzine HCL (ATARAX) 25 mg tablet Take 1 Tablet by mouth 3 times daily as needed for Anxiety. 4 Active lisinopril (PRINIVIL,ZESTRIL ) 40 mg tablet TAKE 1 TABLET BY MOUTH DAILY 90 tablet 4 Active sertraline 150 mg capsule Take 150 mg by mouth 1 (one) time each day. 90 capsule 1 4 05/07/20 25 Active oxyCODONE (ROXICODONE) 10 mg immediate release tabletIndications :Other chronic pain Take 1 tablet (10 mg total) by mouth 3 (three) times a day. Max Daily Amount: 30 mg 84 tablet 5 Active atorvastatin (LIPITOR) 20 mg tablet TAKE 1 TABLET BY MOUTH DAILY IN ADDITION TO 40 MG DAILY 90 tablet 1 5 Active tamsulosin (FLOMAX) 0.4 mg 24 hr capsule TAKE 2 CAPSULES BY MOUTH EVERY DAY 30 MINUTES AFTER THE SAME MEAL 180 capsule 1 5 Active fenofibrate (TRICOR) 145 mg tablet TAKE 1 TABLET BY MOUTH DAILY 90 tablet 1 5 Active atorvastatin (LIPITOR) 40 mg tablet TAKE 1 TABLET BY MOUTH DAILY IN ADDITION TO 20 MG DAILY 90 tablet 1 5 Active metoprolol tartrate (LOPRESSOR) 25 mg tablet Take 1 tablet (25 mg total) by mouth 2 (two) times a day. 180 each 3 5 12/03/19 26 Active sertraline (ZOLOFT) 100 mg tablet TAKE 1 TABLET BY MOUTH DAILY 90 tablet 5 Active dilTIAZem XR (DILACOR XR) 120 mg 24 hr capsule Take 1 Capsule by mouth daily for 360 days. 4 11/25/19 25 Discontinued tamsulosin (FLOMAX) 0.4 mg 24 hr capsule TAKE 2 CAPSULES BY MOUTH EVERY DAY 30 MINUTES AFTER THE SAME MEAL 4 12/03/19 25 Discontinued atorvastatin (LIPITOR) 20 mg tablet TAKE 1 TABLET BY MOUTH DAILY IN ADDITION TO 40 MG DAILY 4 12/03/19 25 Discontinued atorvastatin (LIPITOR) 40 mg tablet TAKE 1 TABLET BY MOUTH DAILY IN ADDITION TO 20 MG DAILY 4 12/03/19 25 Discontinued fenofibrate (TRICOR) 145 mg tablet TAKE 1 TABLET BY MOUTH DAILY 4 12/03/19 25 Discontinued oxyCODONE (ROXICODONE) 10 mg immediate release tabletIndications :Other chronic pain Take 1 tablet (10 mg total) by mouth 3 (three) times a day. Max Daily Amount: 30 mg 84 tablet 4 11/29/19 25 Discontinued(Reo rder) metoprolol tartrate (LOPRESSOR) 25 mg tablet Take 1 tablet (25 mg total) by mouth 2 (two) times a day. 180 each 3 5 12/02/19 25 Discontinued(Reo rder) metoprolol tartrate (LOPRESSOR) 25 mg tablet Take 1 tablet (25 mg total) by mouth 2 (two) times a day. 180 each 3 5 12/03/19 25 Discontinued(Reo rder) Active Problems Problem Noted Date Diagnosed Date Frequent ventricular premature beats 11/25/2024 Assessment & Plan (11/25/2024 4:44 PM EST): PVC burden is more than 20%. He is relatively asymptomatic and left ventricular systolic function has been normal so far. However his both ventricle size are mildly increased. I would like to schedule cardiac MRI to further assess whether there is myocardial process causing PVCs. At the meantime, we will also assess cardiac chamber size and function. I will switch diltiazem to metoprolol. 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 There is no need for yearly CT to minimize radiation exposure unless there is alternative reason for CT yearly. Fatty liver 01/30/2019 Obesity (BMI 30.0-34.9) 01/12/2019 Adrenal mass 04/09/2018 Abdominal aneurysm 12/25/2015 TIA (transient ischemic attack) 08/17/2015 Cervical radicular pain 07/21/2014 BPH (benign prostatic hyperplasia) 07/20/2013 Pure hypercholesterolemia 06/06/2006 Essential hypertension, benign 06/06/2006 Assessment & Plan (11/25/2024 4:44 PM EST): Overall well-controlled. Encounters Date Type Department Care Team Description 12/07/2024 Telephone Adult Medicine - [place] [address] [place] [address] Brody Alves PA Prior Auth (Sertraline 150 MG) 12/02/2024 Telephone [facility] - [address] [place] [address] Roel White MD Appointment (Cardiac MRI) 11/25/2024 10:20 AM EST Office Visit [facility] - [address] [place] [address] Roel White MD Heart murmur (Primary Dx); Cardiomegaly; Frequent ventricular premature beats; Aneurysm of ascending aorta without rupture (CMS/HCC); Essential hypertension, benign 11/18/2024 10:30 AM EST Ancillary Procedure [facility] - [address] [place] [address] Heart murmur 11/08/2024 9:30 AM EST Office Visit Adult Medicine - [place] [address] [place] [address] Brody Alves PA Pure hypercholesterolemia (Primary Dx); Prediabetes; Thoracic aortic aneurysm without rupture, unspecified part (CMS/HCC); Essential hypertension, benign; Opioid contract exists; Need for vaccination against Streptococcus pneumoniae; Need for hepatitis C screening test from Last 3 Months Immunizations Name Administration Dates Next Due Influenza Quadravalent, 0.5m l (Fluad) 65yo and older 08/07/2022,08/24/2021 Influenza Quadravalent, MDCK , 0.5ml, preservative free (Flucelvax) 6mo and older 08/19/2017 Influenza Quadrivalent, 0.5m l, preservative free (Fluarix; FluLaval; Fluzone) ages 6mo and older (Afluria) 3yo and older 07/11/2020 Influenza trivalent, 0.5mL ( Fluad) 65yo and older 06/17/2024,09/05/2023,08/17/2021 Influenza trivalent, 0.5mL ( Fluzone High-dose) 65yo and older 06/25/2024,09/05/2023 Influenza trivalent, 0.5mL, preservative free (Fluarix; FluLaval; Fluzone) ages 6mo and older (Afluria) 3 years and older 08/25/2016,08/17/2015,08/03/2014,2012,10/22/2012 Influenza trivalent, with preservative (Fluzone; Afluria) 6mo and older 06/17/2019,08/03/2014,08/02/2013,2011 Influenza, Unspecified 08/25/2016 Pfizer SARS-CoV-2 COVID-19, mRNA, LNP-S, preservative free 08/17/2021,02/13/2021,01/23/2021 Pneumococcal conjugate 20 va lent (Prevnar 20, PCV 20) 2mo and older 11/08/2024 Tdap Tetanus diptheria acell ular pertussis (Boostrix; Adacel) 7yo and older 12/25/2015 Zoster Live 06/24/2016 Zoster recombinant (Shingrix ) 19yo and older 11/17/2016 Surgical History Surgery Date Site/Laterality Comments HERNIA REPAIR PROCEDURE: HISTORICAL HERNIA REPAIR/ING; COMMENT: left CARPAL TUNNEL RELEASE Right PROCEDURE: [place] NEUROPLASTY &/TRANSPOS MEDIAN NRV CARPAL TUNNE Medical History Medical History Date Comments Pure hypercholesterolemia 06/06/2006 DX:Pur e hypercholesterolemia Essential hypertension, benign 06/06/2006 D X:Essential hypertension, benign Obesity, unspecified 08/13/2006 DX:Obesity, unspecified Former smoker 05/08/2009 DX:Former smoker Cervical radicular pain 07/21/2014 DX:Cervi joy radicular pain Abdominal aneurysm (CMS/HCC) 12/25/2015 DX: Abdominal aneurysm (HCC) Adrenal mass (CMS/HCC) 04/09/2018 DX:Adrena l mass (HCC) Fatty liver 01/30/2019 DX:Fatty liver Aortic aneurysm (CMS/HCC) 09/07/2019 DX:Aor tic aneurysm (HCC); COMMENT: 4cm on echo 2018 Atherosclerosis of arteries 02/08/2021 DX:A therosclerosis of arteries Family History Medical History Relation Name Comments Heart attack Father age 68 Mental illness Father dementia Diabetes Mother Hypertension Mother Other cancer Mother leukemia Stroke Paternal Grandfather Relation Name Status Comments Father Mother Paternal Grandfather Social History Tobacco Use Types Packs/Day Years Used Date Smoking Tobacco: Former Cigarettes Q uit: 11/17/1986 Smokeless Tobacco: Never Tobacco Cessation:Counseling Given: Not Answered Alcohol Use Standard Drinks/Week Comments No 0 (1 standard drink = 0.6 oz pur e alcohol) Sex and Gender Information Value Date Recorded Sex Assigned at Not on file Gender Identity Not on file Sexual Orientation Not on file Job Start Date Occupation Industry Not on file Not on file Not on file Obstetrics History Last Filed Vital Signs Vital Sign Reading Time Taken Comments Blood Pressure 118/62 11/25/2024 10:03 AM EST Pulse 72 11/25/2024 10:03 AM EST Temperature 36.3 ??C (97.3 ??F) 11/08/2024 9:18 AM ES T Respiratory Rate - - Oxygen Saturation 97% 11/25/2024 10:03 AM EST Inhaled Oxygen Concentration - - Weight 109 kg (240 lb) 11/25/2024 10:03 AM EST Height 185.4 cm (6' 1 ) 11/25/2024 10:03 AM EST Body Mass Index 31.66 11/25/2024 10:03 AM EST Plan of Treatment Upcoming Encounters Date Type Department Care Team (Late st Contact Info) Description 01/11/2025 9:30 AM EST Telemedicine Adult Medicine [facility] [address] [place] [address] Brody Alves PA [address] [place] [address] Health Maintenance Due Date Last Done Comments RSV Immunization Patients 60+ Years Old (1 - Risk 60-74 years 1-dose series) 2016 Zoster Vaccines (3 of 3) 01/12/2017 11/17/2016, 06/2016 Colorectal Cancer Screening: Stool Based Tests (FOBT/FIT) 10/26/2022 Hepatitis C Screening 10/26/2022 Medicare Annual Wellness Visit 10/26/2022 Social Influencers of Health Screening 10/26/2022 COVID-19 Vaccine ( season) 2024 09/28/2022, 08/17/2021, 02/13/2021, Additional history exists Hypertension/CHF/CAD Annual BMP Blood Test 05/07/2025 05/07/2024, 05/07/2024 Depression Screening 11/08/2025 11/08/2024 Falls Risk Assessment 11/08/2025 11/08/2024 DTaP,Tdap,and Td Vaccines (2 - Td or Tdap) 12/25/2025 12/25/2015 Cholesterol Screening (Lipid Panel) 06/04/2028 06/04/2023 Colorectal Cancer Screening: Colonoscopy Discontinued 10/20/2023 Colorectal Cancer Screening: FIT-DNA (Cologuard) Discontinued 10/20/2023, 10/20/2023 Influenza Vaccine Completed 06/25/2024, , 09/05/2023, Additional history exists Pneumococcal Vaccine: 65+ Years Completed 11/08/2024 HIB Vaccines Aged Out No longer eligi ble based on patient's age to complete this topic HPV Vaccines Aged Out No longer eligi ble based on patient's age to complete this topic Hepatitis A Vaccines Aged Out No long er eligible based on patient's age to complete this topic Hepatitis B Vaccines Aged Out No long er eligible based on patient's age to complete this topic IPV Vaccines Aged Out No longer eligi ble based on patient's age to complete this topic MMR Vaccines Aged Out No longer eligi ble based on patient's age to complete this topic Meningococcal ACWY Vaccine Aged Out N o longer eligible based on patient's age to complete this topic RSV Immunization Patients Under 20 months Aged Out No longer eligible based on patient's age to complete this topic Varicella Vaccines Aged Out No longer eligible based on patient's age to complete this topic Procedures Procedure Name Priority Date/Time Associated Diagnosis Comments ECG 12-LEAD Routine 11/25/2024 10:08 AM EST Heart murmur TRANSTHORACIC ECHOCARDIOGRAM (TTE) COMPLETE Routine 11/18/2024 11:08 AM EST Heart murmur ANNUAL BMP BLOOD TEST Routine 05/07/2024 COLONOSCOPY Routine 10/20/2023 LIPID PANEL Routine 06/04/2023 from Last 3 Months or Most Recently Relevant to Health Maintenance Results * ECG 12 lead (11/25/2024 10:08 AM EST) Ventricular Rate ECG 72 BPM GEMUSE Atrial Rate 72 BPM GEMUSE P-R Interval 190 ms GEMUSE QRS Duration 92 ms GEMUSE Q-T Interval 382 ms GEMUSE QTc 418 ms GEMUSE P Wave Lupton 58 degrees GEMUSE R Lupton -32 degrees GEMUSE T [place] 26 degrees GEMUSE ECG Interpretation Sinus rhythm with frequent Premature ventricular complexes Left axis deviation Abnormal ECG No previous ECGs available Confirmed by Panda WHITE, ROEL ([id number]) on 11/25/2024 10:11:24 AM GEMUSE 11/25/2024 10:0 8 AM EST 11/25/2024 10:11 AM EST Roel White MD ECG ORDERABLES GEMUSE * (ABNORMAL) TRANSTHORACIC ECHOCARDIOGRAM (TTE) COMPLETE (11/18/2024 11:08 AM EST) Left Atrium Minor Lupton 6.0 cm CV PACS Left Atrium Major Lupton 6.0 cm CV PACS LA Area Sys (A2C) 27 cm2 CV PACS LA Area Sys (A4C) 28 cm2 CV PACS LA Volume (BP) 98 mL CV PACS LA Size 5.2 cm CV PACS RA Area 23.0 cm2 CV PACS RA 2D Volume 85 mL CV PACS AV Mean Gradient 6 mmHg CV PACS Ao VTI 35.1 cm CV PACS Ao VTI 35.1 cm CV PACS AV Peak Farzad 1.7 m/s CV PACS AV Peak Gradient 12 mmHg CV PACS AV Area Peak Velocity 4.5 cm2 CV PACS Aortic Arch 4.3 cm CV PACS Ascending Aorta 4.0 cm CV PACS Aortic Sinus Valsalva 4.2 cm CV PACS IVSD 1.1(A) 0.6 - 1.0 cm CV PACS LVIDD 6.2(A) 4.2 - 5.8 cm CV PACS LVIDS 4.0 2.5 - 4.0 cm CV PACS LVOT Diameter 2.8 cm CV PACS LVOT Mean Farzad 0.7 m/s CV PACS LVOT Mean Grad 3 mmHg CV PACS LVOT Peak VTI 23.7 cm CV PACS LVOT Peak Farzad 1.3 m/s CV PACS LVOT Peak Gradient 6 mmHg CV PACS LVPWD 1.1(A) 0.6 - 1.0 cm CV PACS MV E' Tissue Velocity Lateral 7 cm/s CV PACS MV E' Tissue Velocity Septal 5 cm/s CV PACS LVOT Area 6.2 cm2 CV PACS LVOT Stroke Volume 146 mL CV PACS MV Deceleration [place]chise 2.9 m/s2 CV PACS E Wave Deceleration Time 210 119 - 242 ms CV PACS MV PHT 62 ms CV PACS MV Peak A Farzda 0.63 m/s CV PACS MV Peak E Farzad 0.61 m/s CV PACS MV Mean Gradient 1 mmHg CV PACS MV Mean Gradient 1 mmHg CV PACS MV Mean Gradient 1 mmHg CV PACS MV Mean Gradient 1 mmHg CV PACS MV VTI 25.2 cm CV PACS Mitral Valve Max Velocity 0.8 m/s CV PACS MV Peak Gradient 3 mmHg CV PACS MV Area PHT 3.6 cm2 CV PACS MV Area Continuity Equation 5.8 cm2 CV PACS PV Acceleration Time 109 ms CV PACS PV Mean Gradient 1 mmHg CV PACS PV VTI 19.3 cm CV PACS PV Peak Velocity 0.8 m/s CV PACS PV Peak Gradient 3 mmHg CV PACS RV Diastolic Basal Dimension 5.3(A) 2.5 - 4.1 cm CV PACS RV S' 12 cm/s CV PACS TAPSE 23 mm CV PACS E/E' Ratio Septal 12 CV PACS E/E' Ratio Averaged 10 CV PACS Relative Wall Thickness ratio 0.35 CV PACS FS 35 % CV PACS LV Mass 2D 295 g CV PACS MV VTI:LVOT VTI ratio 1.1 CV PACS LVOT flow 431 mL/s CV PACS AV Velocity Ratio 0.76 CV PACS E/A Ratio 1.0 CV PACS E/E' Ratio Lateral 9 CV PACS BSA 2.36 m2 CV PACS LA Volume Index (BP) 42 mL/m2 CV PACS LVIDD Index 2.67 cm/m2 CV PACS LVIDS Index 1.72 cm/m2 CV PACS LV Mass Index 2D 127(A) 50 - 102 g/m2 CV PACS LVOT Stroke Index 63 mL/m2 CV PACS LA Dimension Index 2D 2.2 cm/m2 CV PACS RA 2D Volume Index 37(A) 18 - 32 mL/m2 CV PACS FRANCO Index (Pk Farzad) 1.94 cm2/m2 CV PACS Ascending Aorta Index 1.72 cm/m2 CV PACS Anatomical Region Laterality Modality Ultrasound Narrative 11/19/2024 9:31 AM EST ?Left ventricle cavity is mildly dilated. Left ventricle mild concentric hypertrophy. ??Left ventricular systolic function is in the normal range with an ejection fraction of 60-65%. Regional wall motion cannot be adequately assessed due to suboptimal visualization of endocardial border. There is Grade II (moderate) diastolic dysfunction. ?Right ventricle cavity is mildly enlarged. Right ventricular systolic function is normal. ?Left atrium cavity is moderately dilated. ?Right atrium cavity is mildly dilated. ?The Sinus of Valsalva is dilated (4.2 cm). The ascending aorta is dilated (4.0 cm). ?Frequent PVCs are present. ??A brief tachycardia during the study. ?Compared to previous study of 12/27/2022, right ventricle appears mildly enlarged. Left Ventricle Left ventricle cavity is mildly dilated. There is mild concentric hypertrophy. There is discrete basal septal thickening. Systolic function is normal with an ejection fraction of 60-65%. Regional wall motion cannot be adequately assessed due to suboptimal visualization of endocardial border. There is Grade II (moderate) diastolic dysfunction. Right Ventricle Right ventricle cavity is mildly dilated. Systolic function is normal. Left Atrium Left atrium cavity is moderately dilated. Right Atrium Right atrium cavity is mildly dilated. IVC/SVC Inferior vena cava was not well visualized. RA pressures is estimated to be 3 mmHg (IVC diameter <21 mm and decreases >50% during inspiration). Mitral Valve Mitral valve structure is normal. There is mild annular calcification. There is trace regurgitation. There is no evidence of mitral valve stenosis. Tricuspid Valve Tricuspid valve structure is normal. There is no significant regurgitation. Cannot assess RVSP. Aortic Valve The aortic valve is trileaflet. The leaflets are mildly thickened. There is trace regurgitation. There is no evidence of aortic valve stenosis. Pulmonic Valve There is trace pulmonic valve regurgitation. There is no evidence of pulmonic valve stenosis. Ascending Aorta The Sinus of Valsalva is dilated (4.2 cm). The ascending aorta is dilated (4.0 cm). Pericardium Pericardium appears normal. There is no pericardial effusion. Study Details Overall the study quality was adequate. Brody CHUNG CV ECHO PROCEDURES * Annual BMP Blood Test (05/07/2024) [facility] Annual BMP Blood Test abstracted Historical Provider MD GAYE TRUONG E * Colonoscopy (10/20/2023) [facility] Colonoscopy abstracted, no interpretation Anatomical Region Laterality Modality Other Historical Provider MD GAYE TRUONG E * Lipid panel (06/04/2023) [facility] LDL/HDL Ratio 2 0 - 4 Triglycerides 88 0 - 150 mg/dL Cholesterol 146 0 - 200 mg/dL HDL 60 40 mg/dL LDL Cholesterol 69 0 - 100 mg/dL Blood Venous blood specimen / Unknown Historical Provider LAB BLOOD ORDERAB LES from Last 3 Months or Most Recently Relevant to Health Maintenance Care Teams Commutator Assembler Relationship Specialty Start Date End Date Ariana Spear MD [address] [place] [address] PCP - General Internal Medicine 11/04/24
--- OUTSIDE RECORDS SUMMARY | 2024-12-20 11:29 | XMS_ITS | Encounter Summary ---
Author Organization [employer] Address [address] [place] [address] Care Team Providers Care Veterans' Coordinator Name Role Phone Ariana Spear MD Primary Care Prov ider Reason for Referral * Imaging (Routine) - Pending Review Specialty Diagnoses / Procedures Referred By Jennifer boone Referred To Contact Diagnoses Cardiomegaly Procedures MR Cardiac Morphology and Function wo and w Contrast Roel White MD [address] [place] [address] External Performed Referral ID Status Reason Start Date Expiration Date V isits Requested Visits Authorized [id number] Pending Review 11/25/2024 11/25/2025 1 1 Reason for Visit * Reason Comments Establish Care Encounter Details Date Type Department Care Team (Late st Contact Info) Description 11/25/2024 10:20 AM EST Office Visit [facility] - [address] [facility] [address] [place] [phone] Roel White MD [address] [facility] [address] [place] [address] Heart murmur (Primary Dx); Cardiomegaly; Frequent ventricular premature beats; Aneurysm of ascending aorta without rupture (CMS/HCC); Essential hypertension, benign Social History Tobacco Use Types Packs/Day Years Used Date Smoking Tobacco: Former Cigarettes Q uit: 11/17/1986 Smokeless Tobacco: Never Alcohol Use Standard Drinks/Week Comments No 0 (1 standard drink = 0.6 oz pur e alcohol) Sex and Gender Information Value Date Recorded Sex Assigned at Not on file Gender Identity Not on file Sexual Orientation Not on file Job Start Date Occupation Industry Not on file Not on file Not on file documented as of this encounter Last Filed Vital Signs Vital Sign Reading Time Taken Comments Blood Pressure 118/62 11/25/2024 10:03 AM EST Pulse 72 11/25/2024 10:03 AM EST Temperature - - Respiratory Rate - - Oxygen Saturation 97% 11/25/2024 10:03 AM EST Inhaled Oxygen Concentration - - Weight 109 kg (240 lb) 11/25/2024 10:03 AM EST Height 185.4 cm (6' 1 ) 11/25/2024 10:03 AM EST Body Mass Index 31.66 11/25/2024 10:03 AM EST documented in this encounter Ordered Prescriptions Prescription Sig Dispensed Refills Start Date End Da te metoprolol tartrate (LOPRESSOR) 25 mg tablet Take 1 tablet (25 mg total) by mouth 2 (two) times a day. 180 each 3 11/25/2024 12/02/2024 documented in this encounter Progress Notes * Roel White MD - 11/25/2024 10:20 AM ESTAssociated Problem(s): Frequent ventricular premature beats PVC burden is more than 20%. He is relatively asymptomatic and left ventricular systolic function has been normal so far. However his both ventricle size are mildly increased. I would like to schedule cardiac MRI to further assess whether there is myocardial process causing PVCs. At the meantime, we will also assess cardiac chamber size and function. I will switch diltiazem to metoprolol. * Roel White MD - 11/25/2024 10:20 AM ESTAssociated Problem(s): Aortic aneurysm (CMS/HCC) Ascending aorta size is minimally increased. There is no need for yearly CT to minimize radiation exposure unless there is alternative reason for CT yearly. * Roel White MD - 11/25/2024 10:20 AM ESTAssociated Problem(s): Essential hypertension, benign Overall well-controlled. * Roel White MD - 11/25/2024 10:20 AM EST Images from the original note were not included. [facility] CONSULT REQUESTED BY: Brody Hwang PCP: Ariana Spear MD HPI: Felipe Phillips is a 69 y.o. old male with HTN, HLP and minimal ascending aorta dilation and hypertension. He is a very active person and exercise in gym routinely with a cardiac and also mostly weight lifting. He been drinking fairly amount of coffee regularly. He noted dizziness when he changed body position from lower position to standing. Urinary symptom was a brief and resolved quickly. Past couple point, he felt he was going to pass out and was told to have a TIA. He Never had a MRI and was seen by urologist once. He has been on aspirin and statin. He was found to have frequent PVCs and Holter showed more than 20% of PVCs. He did not notice palpitation with PVCs but did note irregular pulse at night when he laying on his side. He also had exercise EKG stress test and exercised for more than 9 minutes on Robby protocol with no symptoms or ischemic change. Eventually, he had echocardiogram this month and had mild biventricular enlargement with normal systolic function. Regional motion cannot be adequately assessed. There was no obvious valvular disease. ACTIVE MEDICATIONS: Outpatient Medications Marked as Taking for the 11/25/24 encounter (Office Visit) with Roel White MD Medication Sig Dispense Refill aspirin (ASPIR-81 ORAL) Take by mouth. atorvastatin (LIPITOR) 20 mg tablet TAKE 1 TABLET BY MOUTH DAILY IN ADDITION TO 40 MG DAILY atorvastatin (LIPITOR) 40 mg tablet TAKE 1 TABLET BY MOUTH DAILY IN ADDITION TO 20 MG DAILY fenofibrate (TRICOR) 145 mg tablet TAKE 1 TABLET BY MOUTH DAILY hydrOXYzine HCL (ATARAX) 25 mg tablet Take 1 Tablet by mouth 3 times daily as needed for Anxiety. lisinopril (PRINIVIL,ZESTRIL) 40 mg tablet TAKE 1 TABLET BY MOUTH DAILY 90 tablet 0 multivit-min/iron/folic acid/K (ADULTS MULTIVITAMIN ORAL) Take by mouth. oxyCODONE (ROXICODONE) 10 mg immediate release tablet Take 1 tablet (10 mg total) by mouth 3 (three) times a day. Max Daily Amount: 30 mg 84 tablet 0 sertraline 150 mg capsule Take 150 mg by mouth 1 (one) time each day. 90 capsule 1 tamsulosin (FLOMAX) 0.4 mg 24 hr capsule TAKE 2 CAPSULES BY MOUTH EVERY DAY 30 MINUTES AFTER THE SAME MEAL [DISCONTINUED] dilTIAZem XR (DILACOR XR) 120 mg 24 hr capsule Take 1 Capsule by mouth daily for 360days. PAST MEDICAL HISTORY: Patient Active Problem List Diagnosis Pure hypercholesterolemia BPH (benign prostatic hyperplasia) Obesity (BMI 30.0-34.9) Arthritis of both temporomandibular joints Prediabetes Anemia Other chronic pain Mild episode of recurrent major depressive disorder (CMS/HCC) Abdominal aneurysm (CMS/HCC) Adrenal mass (CMS/HCC) Aortic aneurysm (CMS/HCC) Atherosclerosis of arteries Cervical radicular pain Essential hypertension, benign Fatty liver TIA (transient ischemic attack) Obesity (BMI 30.0-34.9) Frequent ventricular premature beats ALLERGIES: No Known Allergies FAMILY HISTORY: Family History Problem Relation Name Age of Onset Hypertension Mother Other cancer Mother leukemia Diabetes Mother Heart attack Father age 68 Mental illness Father dementia Stroke Paternal Grandfather SOCIAL HISTORY: Social History Tobacco Use Smoking status: Former Current packs/day: 0.00 Types: Cigarettes Quit date: 11/17/1986 Years since quittin.0 Smokeless tobacco: Never Substance Use Topics Alcohol use: No ROS: All pertinent review of systems as stated in HPI otherwise reviewed and are negative. PHYSICAL EXAM: Vitals: 11/25/24 1003 BP: 118/62 Pulse: 72 SpO2: 97% Weight: 109 kg (240 lb) Height: 1.854 m (73 ) APPEARANCE: Alert and in no acute distress EYES: PERRLA, conjunctiva and sclera normal. NECK: Neck supple, no adenopathy, thyroid symmetric and of normal size HEART: RRR with ectopic heart beats with normal S1 and S2, mild systolic murmur at RUSB, no gallops, no JVD appreciated LUNG: clear to auscultation in all mtz ABDOMEN: Bowel sounds normoactive, soft, non-tender, without organomegaly or palpable masses EXTREMITIES: Extremities warm and well perfused without clubbing, cyanosis, or edema NEURO: Awake, alert and oriented SKIN: Skin color, texture, turgor normal. No rashes or lesions. MUSCULOSKELETAL: Gait normal EKG: TESTING: ASSESSMENT/PLAN: Assessment & Plan Heart murmur Orders: ECG 12 lead Cardiomegaly Orders: MR Cardiac Morphology and Function wo and w Contrast; Future Frequent ventricular premature beats PVC burden is more than 20%. He is relatively asymptomatic and left ventricular systolic function has been normal so far. However his both ventricle size are mildly increased. I would like to schedule cardiac MRI to further assess whether there is myocardial process causing PVCs. At the meantime, we will also assess cardiac chamber size and function. I will switch diltiazem to metoprolol. Aneurysm of ascending aorta without rupture (CMS/HCC) Ascending aorta size is minimally increased. There is no need for yearly CT to minimize radiation exposure unless there is alternative reason for CT yearly. Essential hypertension, benign Overall well-controlled. The [facility] team will continue to co-manage this patient following the plan of care as established by my initial visit and as per AHA guidelines for ongoing management and surveillance of PVCs and ascending aorta dilation This will include medication titration, initiation of appropriate medications andfurther titration, and diagnostic studies to manage this disease process. documented in this encounter Plan of Treatment Upcoming Encounters Date Type Department Care Team (Late st Contact Info) Description 01/11/2025 9:30 AM EST Telemedicine Adult Medicine - [place] [address] [place] [address] Brody Alves PA [address] [place] [address] Scheduled Orders Name Type Priority Associated Diagnoses Orde r Schedule MR Cardiac Morphology and Function wo and w Contrast Cardiac CT/MRI Routine Cardiomegaly Expected: 11/25/2024, Expires: 11/25/2025 documented as of this encounter Procedures Procedure Name Priority Date/Time Associated Diagnosis Comments ECG 12-LEAD Routine 11/25/2024 10:08 AM EST Heart murmur documented in this encounter Results * ECG 12 lead (11/25/2024 10:08 AM EST) Ventricular Rate ECG 72 BPM GEMUSE Atrial Rate 72 BPM GEMUSE P-R Interval 190 ms GEMUSE QRS Duration 92 ms GEMUSE Q-T Interval 382 ms GEMUSE QTc 418 ms GEMUSE P Wave Onset 58 degrees GEMUSE R Onset -32 degrees GEMUSE T Onset 26 degrees GEMUSE ECG Interpretation Sinus rhythm with frequent Premature ventricular complexes Left axis deviation Abnormal ECG No previous ECGs available Confirmed by Panda WHTIE, ROEL ([id number]) on 11/25/2024 10:11:24 AM GEMUSE 11/25/2024 10:0 8 AM EST 11/25/2024 10:11 AM EST Roel White MD ECG ORDERABLES GEMUSE documented in this encounter Visit Diagnoses Diagnosis Heart murmur- Primary Undiagnosed cardiac murmurs Cardiomegaly Frequent ventricular premature beats Aneurysm of ascending aorta without rupture (CMS/HCC) Essential hypertension, benign documented in this encounter Discontinued Medications Medication Sig Discontinue Reason Start Date End Da te dilTIAZem XR (DILACOR XR) 120 mg 24 hr capsule Take 1 Capsule by mouth daily for 360 days. 09/15/2024 11/25/2024 documented as of this encounter Care Teams Veterans' Coordinator Relationship Specialty Start Date End Date Ariana Spear MD [address] [place] [id number] PCP - General Internal Medicine 11/04/24 documented as of this encounter
--- OUTSIDE RECORDS SUMMARY | 2024-12-20 11:29 | XMS_ITS | Encounter Summary ---
Author Organization [employer] [place] [address] Care Team Providers Care Strap Making Machine Operator Name Role Phone Ariana Spear MD Primary Care Prov ider Reason for Visit * Reason Onset Date Comments Appointment 12/02/2024 Cardiac MRI Encounter Details Date Type Department Care Team (Late st Contact Info) Description 12/02/2024 Telephone [facility] - [facility] [address] [facility] [address] [place] [address] Roel White MD [address] [facility] [address] [place], [place] [id number] Appointment (Cardiac MRI) Social History Tobacco Use Types Packs/Day Years [...] on file documented as of this encounter Progress Notes * Tracy William - 12/02/2024 2:34 PM EST Order, demos and ov note have been faxed to [facility] scheduling to authorize and schedule pt for a Cardiac MRI scan. They will contact the pt to schedule this appointment. documented in this encounter Plan of Treatment Upcoming Encounters Date Type Department Care Team (Late st Contact Info) Description 01/11/2025 9:30 AM EST Telemedicine Adult Medicine [facility] [address] [place] [address] Brody Alves PA [address] [place], [place] documented as of this encounter Visit Diagnoses Not on filedocumented in this encounter Care Teams Strap Making Machine Operator Relationship Specialty Start Date End Date Ariana Spear MD [address] [place] [address] PCP - General Internal Medicine 11/04/24 documented as of this encounter
--- OUTSIDE RECORDS SUMMARY | 2024-12-20 11:29 | XMS_ITS | Encounter Summary ---
Author Organization [place] [address] Care Team Providers Care Daycare Manager Name Role Phone Ariana Spear MD Primary Care Prov ider Reason for Visit * Reason Onset Date Comments Prior Auth 12/07/2024 Sertraline 150 M G Encounter Details Date Type Department Care Team (Late st Contact Info) Description 12/07/2024 Telephone Adult Medicine - [place] [address] [place] [phone] Brody Alves PA [address] [place] [address] Prior Auth (Sertraline 150 MG) Social History Tobacco Use Types Packs/Day Years [...] as of this encounter Progress Notes * Suzan Davis MA - 12/15/2024 3:18 PM EST Prior authorization for the sertraline was approved Approved from 11/09/24 until 12/09/25 Approval faxed to [facility] [phone] * Suzan Davis MA - 12/09/2024 3:08 PM EST Prior authorization for the sertraline was completed today on cmm Cmm comes back with this message Your PA request cannot be processed for the member plan submitted. Called bs and spoke with Mahogany torres we were able to do this prior authorization over the phone today for the sertraline Dx code F33.0 Mild episode of recurrent major depressive disorder * Shanti Rangel - 12/07/2024 1:23 PM EST Prior Authorization for Medication-do not complete and send this encounter unless you have the fax from the pharmacy. Is this a Cover My Meds request: Hernandez of Medication Sertraline 150MG Capsules Dose of Medication 150MG What is the RX # from the faxed refill? [id number] How does patient take this med? Take 1 capsule by mouth1 time each day What Pharmacy did the fax come from: [facility] fax #: [phone] [employer] Party Information from fax: What Prescription Plan does the patient have? NA BIN/PCN if applicable: Cardholder ID: [id number] -[id number] Person Code: Relationship Code: Help desk phone: [phone] documented in this encounter Plan of Treatment Upcoming Encounters Date Type Department Care Team (Late st Contact Info) Description 01/11/2025 9:30 AM EST Telemedicine Adult Medicine - [place] [address] [place] [address] Brody Alves PA [address] [place], [place] documented as of this encounter Visit Diagnoses Not on filedocumented in this encounter Care Teams Daycare Manager Relationship Specialty Start Date End Date Ariana Spear MD [address] [place], [place] PCP - General Internal Medicine 11/04/24 documented as of this encounter
--- OUTSIDE RECORDS SUMMARY | 2024-12-20 11:29 | XMS_ITS | Clinical Summary ---
Author Organization [facility] Address [address] [place] [address] Care Team Providers Care Film Rental Clerk Name Role Phone Ariana Spear MD Primary Care Prov ider Medications No known medications Active Problems No known active problems Social History Tobacco Use Types Packs/Day Years Used Date Smoking Tobacco: Former Cigarettes Smokeless Tobacco: Never Tobacco Cessation:Counseling Given: Not Answered Alcohol Use Standard Drinks/Week Comments Yes 0 (1 standard drink = 0.6 oz pur e alcohol) Rare Sex and Gender Information Value Date Recorded Sex Assigned at Not on file Gender Identity Not on file Sexual Orientation Not on file Job Start Date Occupation Industry Not on file Not on file Not on file Last Filed Vital Signs Vital Sign Reading Time Taken Comments Blood Pressure 153/94 12/05/2022 2:19 PM EST Pulse 82 12/05/2022 2:19 PM EST Temperature 36.4 ??C (97.6 ??F) 12/05/2022 2:19 PM ES T Respiratory Rate - - Oxygen Saturation 96% 12/05/2022 2:19 PM EST Inhaled Oxygen Concentration - - Weight 112 kg (247 lb) 12/05/2022 2:19 PM EST Height - - Body Mass Index - - Plan of Treatment Health Maintenance Due Date Last Done Comments Hepatitis C Screening 1956 Depression Screening 1968 Preventative Health Evaluation 02/17/1974 Colon Cancer Screening (Colonoscopy) 02/17/2001 Shingrix-Zoster Vaccine (2 of 2) 01/12/2017 11/17/2016 Fall Risk Assessment 02/17/2021 Pneumococcal Vaccine (1 of 1 - PCV) 02/17/2021 COVID-19 Vaccine (4 - 4-25 season) 2024 08/17/2021, 02/13/2021, 01/23/2021 Influenza Vaccine (#1) 2024 , 06/17/2019, 08/17/2015, Additional history exists DTap / Tdap / Td (2 - Td or Tdap) 12/25/2025 12/25/2015 RSV Adult > 60+ Yrs or (1 - 1-dose 75+ series) 02/17/2031 Hepatitis B Vaccines Aged Out No long er eligible based on patient's age to complete this topic RSV Ped < 20 months Aged Out No longe r eligible based on patient's age to complete this topic Care Teams Film Rental Clerk Relationship Specialty Start Date End Date Ariana Spear MD PCP - General Internal Medicine 09/06/22
== END 2024-12-20 11:36 | disposition home or self-care (01) ==
PROVIDERS: PCP Internal Medicine; Visit Provider Orthopaedic Surgery
DX: M23.92 Unspecified internal derangement of left knee (principal)
CPT/HCPCS: 99203

== ENCOUNTER 2024-12-20 10:39 | Outpatient (REF) | payer MEDICARE, SELFPAY ==
--- NOTE | ~2024-12-20 | XR_ITS ---
EXAMINATION: XR KNEE 3 VIEWS LEFT HISTORY: M25.562 - Pain in left knee COMPARISON: There are no prior studies available for comparison. FINDINGS: Standing AP views of the bilateral knees and additional lateral and sunrise patellar views of the left knee are submitted. Osseous mineralization is normal. There is no fracture or dislocation. There is mild narrowing of the lateral patellofemoral compartments. There is mild to moderate narrowing of the medial compartment of the right knee. There are vascular calcifications. There is no joint effusion. XR/XR knee LT 3V IMPRESSION: Mild narrowing of the medial and patellofemoral compartments. Electronically signed by: Ayaz Lang MD 12/21/2024 07:54 AM EST
--- OUTSIDE RECORDS SUMMARY | 2024-12-20 12:19 | XMS_ITS | Clinical Summary ---
Author Organization [facility] Address [address] [place] [address] Care Team Providers Care Field Sales Representative Name Role Phone Ariana Spear MD Primary [...] age to complete this topic Care Teams Field Sales Representative Relationship Specialty Start Date End Date Ariana Spear MD PCP - General Internal Medicine 09/06/22
--- OUTSIDE RECORDS SUMMARY | 2024-12-20 12:19 | XMS_ITS | Clinical Summary ---
Author Organization [facility] [address] [facility] Address [address] [place] [address] Phone Care Team Providers Care Field Property Loss Specialist Name Role Phone Ariana Spear MD Primary [...] Team Description 12/07/2024 Telephone Adult Medicine - [place] [address] [place] [address] Brody Alves PA Prior Auth (Sertraline 150 MG) 12/02/2024 Telephone [facility] - [address] [place] [address] Roel White MD Appointment (Cardiac MRI) 11/25/2024 10:20 AM EST Office Visit [facility] - [address] [place] [address] Roel White MD Heart murmur (Primary Dx); Cardiomegaly; Frequent ventricular premature beats; Aneurysm of ascending aorta without rupture (CMS/HCC); Essential hypertension, benign 11/18/2024 10:30 AM EST Ancillary Procedure [facility] - [address] [place] [address] [place] [address] Heart murmur 11/08/2024 9:30 AM EST Office Visit Adult Medicine - [place] [address] [place] [address] Brody Alves PA Pure hypercholesterolemia [...] COMMENT: left CARPAL TUNNEL RELEASE Right PROCEDURE: RI NEUROPLASTY &/TRANSPOS MEDIAN NRV CARPAL TUNNE Medical [...] 01/11/2025 9:30 AM EST Telemedicine Adult Medicine [facility] [address] [place] [address] Brody Alves PA [address] [place] [address] Health Maintenance Due Date Last Done Comments [...] GEMUSE QTc 418 ms GEMUSE P Wave [place] 58 degrees GEMUSE R [place] -32 degrees GEMUSE T [place] 26 degrees GEMUSE ECG Interpretation Sinus rhythm with frequent Premature ventricular complexes Left axis deviation Abnormal ECG No previous ECGs available Confirmed by Panda WHITE, ROEL ([id number]) on 11/25/2024 10:11:24 AM GEMUSE 11/25/2024 10:0 8 AM EST 11/25/2024 10:11 AM EST Roel White MD ECG ORDERABLES GEMUSE * (ABNORMAL) TRANSTHORACIC ECHOCARDIOGRAM (TTE) COMPLETE (11/18/2024 11:08 AM EST) Left Atrium Minor [place] 6.0 cm CV PACS Left Atrium Major [place] 6.0 cm CV PACS LA Area Sys [...] Volume 146 mL CV PACS MV Deceleration Lee 2.9 m/s2 CV PACS E Wave Deceleration Time 210 119 - 242 ms CV PACS MV PHT 62 ms CV PACS MV Peak A Farzad 0.63 m/s CV PACS MV Peak E [...] * Annual BMP Blood Test (05/07/2024) Pathologist [facility] Annual BMP Blood Test abstracted Historical Provider MD GAYE TRUONG E * Colonoscopy (10/20/2023) [facility] Colonoscopy abstracted, no interpretation Anatomical Region Laterality Modality Other Historical Provider MD GAYE TRUONG E * Lipid panel (06/04/2023) [facility] LDL/HDL Ratio 2 0 - 4 Triglycerides 88 0 - 150 mg/dL Cholesterol 146 0 - 200 mg/dL HDL 60 40 mg/dL LDL Cholesterol 69 0 - 100 mg/dL Blood Venous blood specimen / Unknown Historical Provider LAB BLOOD ORDERAB LES from Last 3 Months or Most Recently Relevant to Health Maintenance Care Teams Field Property Loss Specialist Relationship Specialty Start Date End Date Ariana Spear MD [address] [place] [address] PCP - General Internal Medicine 11/04/24
--- OUTSIDE RECORDS SUMMARY | 2024-12-20 12:19 | XMS_ITS | Encounter Summary ---
Author Organization [place] [address] Care Team Providers Care Biodiesel Plant Superintendent Name Role Phone Ariana Spear MD Primary Care Prov ider Reason for Visit * Reason Onset Date Comments Appointment 12/02/2024 Cardiac MRI Encounter Details Date Type Department Care Team (Late st Contact Info) Description 12/02/2024 Telephone [facility] - [facility] [address] [facility] [address] [place] [address] Roel White MD [address] [facility] [address] [place], [place] [phone] Appointment (Cardiac MRI) Social History Tobacco Use [...] 01/11/2025 9:30 AM EST Telemedicine Adult Medicine [facility] [address] [place] [address] Brody Alves PA [address] [place], [place] documented as of this encounter Visit Diagnoses Not on filedocumented in this encounter Care Teams Biodiesel Plant Superintendent Relationship Specialty Start Date End Date Ariana Spear MD [address] [place] [address] PCP - General Internal Medicine 11/04/24 documented as of this encounter
--- OUTSIDE RECORDS SUMMARY | 2024-12-20 12:19 | XMS_ITS | Encounter Summary ---
Author Organization [employer] Address [address] [place] [address] Care Team Providers Care Manager Of Case Management Name Role Phone Ariana Spear MD Primary Care Prov ider Reason for Referral * Imaging (Routine) - Pending Review Specialty Diagnoses / Procedures Referred By Jennifer boone Referred To Contact Diagnoses Cardiomegaly Procedures MR Cardiac Morphology and Function wo and w Contrast Roel White MD [address] [place] [address] External Performed Referral ID Status Reason Start Date Expiration Date V isits Requested Visits Authorized [id number] Pending Review 11/25/2024 11/25/2025 1 1 Reason for Visit * Reason Comments Establish Care Encounter Details Date Type Department Care Team (Late st Contact Info) Description 11/25/2024 10:20 AM EST Office Visit [facility] - [address] [facility] [address] [place] [phone] Roel White MD [address] [facility] [address] [place] [address] Heart murmur (Primary Dx); Cardiomegaly; Frequent ventricular [...] from the original note were not included. [facility] CONSULT REQUESTED BY: Brody Hwang [...] 9:30 AM EST Telemedicine Adult Medicine - [place] [address] [place] [address] Brody Alves PA [address] [place] [address] Scheduled Orders Name Type Priority Associated Diagnoses [...] GEMUSE QTc 418 ms GEMUSE P Wave [place] 58 degrees GEMUSE R [place] -32 degrees GEMUSE T [place] 26 degrees GEMUSE ECG Interpretation Sinus rhythm [...] documented as of this encounter Care Teams Manager Of Case Management Relationship Specialty Start Date End Date Ariana Spear MD [address] [place] [address] PCP - General Internal Medicine 11/04/24 documented as of this encounter
--- OUTSIDE RECORDS SUMMARY | 2024-12-20 12:19 | XMS_ITS | Encounter Summary ---
Author Organization [place] [address] Care Team Providers Care Gas Golf Cart Repairer Name Role Phone Ariana Spear MD Primary Care Prov ider Reason for Visit * Reason Onset Date Comments Prior Auth 12/07/2024 Sertraline 150 M G Encounter Details Date Type Department Care Team (Late st Contact Info) Description 12/07/2024 Telephone Adult Medicine - [place] [address] [place] [phone] Brody Alves PA [address] [place] [address] Prior Auth (Sertraline 150 MG) Social History [...] from 11/09/24 until 12/09/25 Approval faxed to [facility] [phone] * Suzan Davis MA - 12/09/2024 3:08 [...] Is this a Cover My Meds request: [place] of Medication Sertraline 150MG Capsules Dose of Medication 150MG What is the RX # from the faxed refill? [id number] How does patient take this med? Take 1 capsule by mouth1 time each day What Pharmacy did the fax come from: [facility] fax #: [phone] [employer] Information from fax: What Prescription Plan does the patient have? NA BIN/PCN if applicable: Cardholder ID: [id number] -[id number] Person Code: Relationship Code: Help desk phone: [phone] documented in this encounter Plan of Treatment Upcoming Encounters Date Type Department Care Team (Late st Contact Info) Description 01/11/2025 9:30 AM EST Telemedicine Adult Medicine - [place] [address] [place] [address] Brody Alves PA [address] [place], [place] documented as of this encounter Visit Diagnoses Not on filedocumented in this encounter Care Teams Gas Golf Cart Repairer Relationship Specialty Start Date End Date Ariana Spear MD [address] [place], [place] PCP - General Internal Medicine 11/04/24 documented as of this encounter
== END 2024-12-20 10:40 | disposition home or self-care (01) ==
LOC: HO.HOSX 10:39
PROVIDERS: PCP Internal Medicine; Visit Provider Orthopaedic Surgery
DX: M25.562 Pain in left knee (principal); M23.92 Unspecified internal derangement of left knee
CPT/HCPCS: 73562; 99202

== ENCOUNTER → 2024-12-20 11:10 | Outpatient (BNV) | payer MEDICARE, SELFPAY | PROVIDERS: PCP Internal Medicine; Visit Provider Radiology Diagnostic Radiology | DX: M25.562 Pain in left knee (principal) | CPT/HCPCS: 73562 ==

== ENCOUNTER 2025-01-31 09:04 | Outpatient (AMB) | payer MEDICARE, SELFPAY ==
--- NOTE | 2025-01-31 09:04 | MHC.OFFVIS ---
Intake Visit Reasons: TEL Left knee pain Intake Note: Felipe is a 69 year old male who presents today VIA telephone for a follow up of his left knee. At his last visit an MRI was ordered, but denied stating that he has not tried 6 weeks of conservative treatment. Patient is having continued pain in the knee. Allergies No Known Allergies [No Known Allergies*] Allergy (Unverified 08/03/20 18:54) HPI HPI TEL Left knee pain: Details: Felipe continues to have sharp medial sided knee pain. He has been doing knee exercises in the gym 3 to 4 times a week for the past 6 weeks with continued sharp medial-sided knee pain. He had a similar problem on the right knee that was treated surgically. This feels very similar. He describes sharp medial-sided knee pain with twisting. Standing from a seated position is painful. He feels the quality of his life is diminished. An MRI was denied. [facility] Medical History HTN (hypertension) with goal to be determined Thoracic aortic aneurysm (TAA) Social History Household Members: Spouse Housing: House Do you presently have visiting nurse or other home services: No Alcohol intake: never Patient Tobacco Use Status: Never used Tobacco service: No Current occupational status: employed Telehealth Telehealth Telehealth Platform: Telephone Location of provider rendering services: practice address Patient Identification confirmed using: Name, : Yes Telehealth method: voice only Patient verbally consented to treatment: Yes Patient verbally consented to billing insurance company: Yes Patient informed of any privacy concerns related to visit: Yes Results Reviewed Results Reviewed: Left knee radiographs are normal Assessment & Plan Assessment & Plan (1) Internal derangement of left knee: Code(s): M23.92 - Unspecified internal derangement of left knee Category: Medical Plan: 69-year-old gentleman who is active with no obvious arthritis on left knee radiographs who has internal derangement with sharp medial-sided knee pain with twisting. This is not improved with aspirin Tylenol and knee specific exercise program. I recommend MRI to assess. Orders: Orders MR knee LT wo con Today M23.92 - Unspecified internal derangement of left knee Coding Level of Care Code Tele Est Pt Level 3 (45851) Diagnoses Internal derangement of left knee M23.92
== END 2025-01-31 09:25 | disposition home or self-care (01) ==
LOC: HO.HOS 09:04
PROVIDERS: PCP Internal Medicine; Visit Provider Orthopaedic Surgery
DX: M23.92 Unspecified internal derangement of left knee (principal)
CPT/HCPCS: 99213

== ENCOUNTER 2025-03-04 11:02 | Outpatient (REF) | payer MEDICARE, SELFPAY ==
--- NOTE | ~2025-03-04 | MR_ITS ---
CLINICAL HISTORY: M23.92 - Unspecified internal derangement of left knee MR left knee without gadolinium Comparison: None Findings: No fractures. No pathologic bone lesions. There is a small simple effusion. There is a Poole's cyst. No tears of the cruciate or collateral ligaments. No disruption of the patellar retinacula or iliotibial band. No tears of the quadriceps, patellar, popliteus, or flexor tendons. There is a horizontal tear posterior horn medial meniscus. There is increased signal in the peripheral portion of the meniscus raising possibility of associated meniscocapsular injury. Remaining portions of the meniscus are intact. IMPRESSION: 1. Posterior horn medial meniscal tear with possible meniscocapsular component. 2. Poole's cyst This document has been electronically signed by: Conrado Nixon MD on 03/05/2025 14:55:42
--- OUTSIDE RECORDS SUMMARY | 2025-03-04 12:06 | XMS_ITS | Clinical Summary ---
Author Organization [facility] Address [address] [place] [address] Care Team Providers Care Jetting Machine Operator Name Role Phone Ariana Spear [...] age to complete this topic Care Teams Jetting Machine Operator Relationship Specialty Start Date End Date Ariana Spear MD PCP - General Internal Medicine 09/06/22
--- OUTSIDE RECORDS SUMMARY | 2025-03-04 12:06 | XMS_ITS | Clinical Summary ---
Author Organization [facility] [address] [facility] Address [address] [place] [address] Phone Care Team Providers Care Welder Pipe Making Name Role Phone Ariana Spear MD Primary Care Prov ider Allergies No known active allergies Medications aspirin (ASPIR-81 ORAL) Take by mouth. Active multivit-min/iro n/folic acid/K (ADULTS MULTIVITAMIN ORAL) Take by mouth. Active hydrOXYzine HCL (ATARAX) 25 mg tablet Take 1 Tablet by mouth 3 times daily as needed for Anxiety. 4 Active lisinopril (PRINIVIL,ZESTRI L) 40 mg tablet TAKE 1 TABLET BY MOUTH DAILY 90 tablet 4 Active atorvastatin (LIPITOR) 20 mg tablet TAKE [...] BY MOUTH DAILY 90 tablet 5 Active oxyCODONE (ROXICODONE) 10 mg immediate release tabletIndication s:Other chronic pain Take 1 tablet (10 mg total) by mouth 3 (three) times a day. Max Daily Amount: 30 mg 84 tablet 5 Active oxyCODONE (ROXICODONE) 10 mg immediate release tabletIndication s:Other chronic pain Take 1 tablet (10 mg total) by mouth 3 (three) times a day. Max Daily Amount: 30 mg 84 tablet 5 02/22/20 25 Discontinu ed(Reorder ) Active Problems Problem Noted Date Diagnosed Date Frequent ventricular premature beats 11/25/2024 Assessment & Plan (01/11/2025 9:51 AM EST): Reviewed recent cardiology note. 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 There is no need for yearly CT to minimize radiation exposure unless there is alternative reason for CT yearly. Fatty liver 01/30/2019 Obesity (BMI 30.0-34.9) 01/12/2019 Adrenal mass ([facility] V24) 04/09/2018 Abdominal aneurysm ([facility] V24) 12/25/2015 TIA (transient ischemic attack) 08/17/2015 Cervical radicular pain 07/21/2014 BPH (benign prostatic hyperplasia) 07/20/2013 Pure hypercholesterolemia 06/06/2006 Assessment & Plan (01/11/2025 9:51 AM EST): Continue atorvastatin 60 mg and fenofibrate 145 mg Essential hypertension, benign 06/06/2006 Assessment & Plan (01/11/2025 9:51 AM EST): Well-controlled in office visits. Continue metoprolol 25 mg twice daily lisinopril 40 mg, baby aspirin daily Assessment & Plan (11/25/2024 4:44 PM EST): Overall well-controlled. Encounters Date Type Department Care Team Description 01/11/2025 9:30 AM EST Telemedicine Adult Medicine - [place] [address] [place] [address] Brody Alves PA Essential hypertension, benign (Primary Dx); Pure hypercholesterolemia; Frequent ventricular premature beats; Anxiety and depression; Acute pain of left knee 01/11/2025 Telephone Adult Medicine [facility] [address] [place] [phone] Brody Alves PA 12/07/2024 Telephone Adult Medicine [facility] [address] [place] [phone] Brody Alves PA Prior Auth (Sertraline 150 MG) from Last 3 Months Immunizations Name Administration [...] COMMENT: left CARPAL TUNNEL RELEASE Right PROCEDURE: DC NEUROPLASTY &/TRANSPOS MEDIAN NRV CARPAL TUNNE Medical History Medical History Date Comments Pure hypercholesterolemia 06/06/2006 DX:Pur e hypercholesterolemia Essential hypertension, benign 06/06/2006 D X:Essential hypertension, benign Obesity, unspecified 08/13/2006 DX:Obesity, unspecified Former smoker 05/08/2009 DX:Former smoker Cervical radicular pain 07/21/2014 DX:Cervi joy radicular pain Abdominal aneurysm (CMS/HCC V24) 12/25/2015 DX:Abdominal aneurysm (HCC) Adrenal mass (CMS/HCC V24) 04/09/2018 DX:Ad renal mass (HCC) Fatty liver 01/30/2019 DX:Fatty liver Aortic aneurysm (CMS/HCC V24) 09/07/2019 DX :Aortic aneurysm (HCC); COMMENT: 4cm on echo 2019 Atherosclerosis of arteries 02/08/2021 DX:A therosclerosis of [...] Recorded Sex Assigned at Not on file Legal Sex Male 3:19 PM EST Gender Identity Not on file Sexual Orientation Not on file Obstetrics History Last Filed [...] Care Team (Late st Contact Info) Description 03/22/2025 9:30 AM EDT Office Visit Adult Medicine - [place] [address] [place] [phone] Brody Alves PA [address] [place] [address] Health Maintenance Due Date Last Done Comments RSV Immunization Adult Patients (1 - Risk 60-74 years 1-dose series) 2016 Zoster Vaccines (3 of 3) 01/12/2017 11/17/2016, 06/2016 Colorectal Cancer Screening: Stool Based Tests (FOBT/FIT) 10/26/2022 Medicare Annual Wellness Visit 10/26/2022 Social Influencers of Health Screening 10/26/2022 COVID-19 Vaccine ( season) 2024 09/28/2022, 08/17/2021, 02/13/2021, Additional history exists Depression Screening 11/08/2025 11/08/2024 Falls Risk Assessment 11/08/2025 11/08/2024 DTaP,Tdap,and Td Vaccines (2 - Td or Tdap) 12/25/2025 12/25/2015 Hypertension/CHF/CAD Annual BMP Blood Test 02/23/2026 02/23/2025, 05/07/2024, 05/07/2024 Cholesterol Screening (Lipid Panel) 02/23/2030 02/23/2025, 06/04/2023 Colorectal Cancer Screening: Colonoscopy Discontinued 10/20/2023 Colorectal Cancer Screening: FIT-DNA (Cologuard) Discontinued 10/20/2023, 10/20/2023 Influenza Vaccine Completed 06/25/2024, , 09/05/2023, Additional history exists Pneumococcal Vaccine: 50+ Years Completed 11/08/2024 Hepatitis C Screening Completed 02/23/2025 HIB Vaccines Aged Out No longer eligi [...] patient's age to complete this topic Meningococcal B Vaccine Aged Out No l onger eligible based on patient's age to complete this topic RSV Immunization Patients Under 20 months Aged Out No longer eligible based on patient's age to complete this topic Varicella Vaccines Aged Out No longer eligible based on patient's age to complete this topic Procedures Procedure Name Priority Date/Time Associated Diagnosis Comments BASIC METABOLIC PANEL Routine 02/23/2025 9:16 AM EDT Cardiomegaly HEPATITIS C ANTIBODY Routine 02/23/2025 9:16 AM EDT Need for hepatitis C screening test LIPID PANEL WITH REFLEX TO DIRECT LDL Routine 02/23/2025 9:16 AM EDT Pure hypercholesterolemia HM COLONOSCOPY Routine 10/20/2023 from Last 3 Months or Most Recently Relevant to Health Maintenance Results * Hepatitis C antibody (02/23/2025 9:16 AM EDT) Pathologist [facility] Hepatitis C Antibody Negative Negative LAB CHEMISTRY METHOD 02/23/2025 4:13 PM EDT [facility] Blood Venous blood specimen / Unknown Venipuncture / Unknown 02/23/2025 9:16 AM EDT 02/23/2025 9:16 AM EDT Brody CHUNG LAB BLOOD ORDERABLES Final Res ult [facility] [address] [place] [address], [place] [phone] * Lipid panel with reflex to direct LDL (02/23/2025 9:16 AM EDT) Pathologist [facility] Cholesterol 160 0 - 200 mg/dL LAB CHEMISTRY METHOD 02/23/2025 2:31 PM EDT [facility] Triglycerides 99 0 - 150 mg/dL LAB CHEMISTRY METHOD 02/23/2025 2:31 PM EDT [facility] HDL 53 >=40 mg/dL LAB CHEMISTRY METHOD 02/23/2025 2:31 PM EDT [facility] LDL Calculated 87 0 - 100 mg/dL LAB CHEMISTRY METHOD 02/23/2025 2:31 PM EDT [facility] VLDL Cholesterol Joy 19.8 mg/dL LAB CHEMISTRY METHOD 02/23/2025 2:31 PM [facility] Non HDL Chol. (LDL+VLDL) 107 <145 mg/dL LAB CHEMISTRY METHOD 02/23/2025 2:31 PM [facility] Chol/HDL Ratio 3.0 0.0 - 4.4 LAB CHEMISTRY METHOD 02/23/2025 2:31 PM [facility] Blood Venous blood specimen / Unknown Venipuncture / Unknown 02/23/2025 9:16 AM EDT 02/23/2025 9:16 AM EDT us Brody CHUNG LAB BLOOD ORDERABLES Final Res ult [facility] [address] [place] [address], [place] [phone] * Basic metabolic panel (02/23/2025 9:16 AM EDT) Sodium 140 133 - 145 mmol/L LAB CHEMISTRY METHOD 02/23/2025 2:31 PM [facility] Potassium 4.0 3.5 - 5.5 mmol/L LAB CHEMISTRY METHOD 02/23/2025 2:31 PM [facility] Chloride 107 96 - 110 mmol/L LAB CHEMISTRY METHOD 02/23/2025 2:31 PM [facility] CO2 28 21 - 32 mmol/L LAB CHEMISTRY METHOD 02/23/2025 2:31 PM [facility] Anion Gap 5 3 - 11 LAB CHEMISTRY METHOD 02/23/2025 2:31 PM [facility] Glucose 93 70 - 100 mg/dL LAB CHEMISTRY METHOD 02/23/2025 2:31 PM [facility] BUN 12 5 - 25 mg/dL LAB CHEMISTRY METHOD 02/23/2025 2:31 PM [facility] Creatinine 0.93 0.70 - 1.30 mg/dL LAB CHEMISTRY METHOD 02/23/2025 2:31 PM EDT [facility] eGFR 89 >=60 mL/min/1. 73m2 LAB CHEMISTRY METHOD 02/23/2025 2:31 PM EDT [facility] Comment:Calculation based on the??Chronic Kidney Disease Epidemiology Collaboration (CKD-EPI) equation refit??without adjustment for race. BUN/Creatinine Ratio 12.9 LAB CHEMISTRY METHOD 02/23/2025 2:31 PM EDT [facility] Calcium 9.7 8.5 - 10.5 mg/dL LAB CHEMISTRY METHOD 02/23/2025 2:31 PM EDT [facility] Blood Venous blood specimen / Unknown Venipuncture / Unknown 02/23/2025 9:16 AM EDT 02/23/2025 9:16 AM EDT Roel White MD LAB BLOOD ORDERABLES Final Resul t [facility] [address] [place] [address], [place] [phone] * Colonoscopy (10/20/2023) Colonoscopy abstracted, no interpretation Anatomical Region Laterality Modality Other Historical Provider HEALTH MAINTENANCE Final Result from Last 3 Months or Most Recently Relevant to Health Maintenance Insurance [employer] - [place] MEDICARE ADVANTAGE Care Teams Welder Pipe Making Relationship Specialty Start Date End Date Ariana Spear MD [address] [place] [id number] PCP - General Internal Medicine 11/04/24
== END 2025-03-04 11:03 | disposition home or self-care (01) ==
LOC: HO.MRI 11:02
PROVIDERS: PCP Internal Medicine; Visit Provider Orthopaedic Surgery
DX: M23.92 Unspecified internal derangement of left knee (principal)
CPT/HCPCS: 73721

== ENCOUNTER → 2025-03-04 11:10 | Outpatient (BNV) | payer MEDICARE, SELFPAY | PROVIDERS: PCP Internal Medicine; Visit Provider Specialist | DX: M23.92 Unspecified internal derangement of left knee (principal); M71.22 Synovial cyst of popliteal space [Baker], left knee | CPT/HCPCS: 73721 ==

== ENCOUNTER 2025-04-08 09:08 | Outpatient (AMB) | payer MEDICARE, SELFPAY ==
--- OUTSIDE RECORDS SUMMARY | 2025-04-08 09:25 | XMS_ITS | Clinical Summary ---
Author Organization [facility] [address] [facility] Address [address] [place] [address] Phone Care Team Providers Care Batch Trucker Name Role Phone Ariana Spear MD Primary Care Prov ider Allergies No known active allergies Medications aspirin (ASPIR-81 ORAL) Take by mouth. Active multivit-min/iro n/folic acid/K (ADULTS MULTIVITAMIN ORAL) Take by mouth. Activ e hydrOXYzine HCL (ATARAX) 25 mg tablet Take 1 Tablet by mouth 3 times daily as needed for Anxiety. 07/23/20 24 Active atorvastatin (LIPITOR) 20 mg tablet TAKE 1 TABLET BY MOUTH DAILY IN ADDITION TO 40 MG DAILY 90 tablet 1 12/03/19 25 Active tamsulosin (FLOMAX) 0.4 mg 24 hr capsule TAKE 2 CAPSULES BY MOUTH EVERY DAY 30 MINUTES AFTER THE SAME MEAL 180 capsule 12/03/19 25 Active fenofibrate (TRICOR) 145 mg tablet TAKE 1 TABLET BY MOUTH DAILY 90 tablet 1 12/03/19 25 Active atorvastatin (LIPITOR) 40 mg tablet TAKE 1 TABLET BY MOUTH DAILY IN ADDITION TO 20 MG DAILY 90 tablet 12/03/19 25 Active metoprolol tartrate (LOPRESSOR) 25 mg tablet Take 1 tablet (25 mg total) by mouth 2 (two) times a day. 180 each 3 12/03/19 25 026 Active sertraline (ZOLOFT) 100 mg tablet TAKE 1 TABLET BY MOUTH DAILY 90 tablet 04/18/20 25 Active oxyCODONE (ROXICODONE) 10 mg immediate release tabletIndication s:Other chronic pain Take 1 tablet (10 mg total) by mouth 3 (three) times a day. Max Daily Amount: 30 mg 84 tablet 03/22/20 25 Active lisinopril (PRINIVIL,ZESTRI L) 40 mg tablet Take 1 tablet (40 mg total) by mouth 1 (one) time each day. 90 tablet 1 03/22/20 25 Active sertraline (ZOLOFT) 50 mg tablet Take 1 tablet (50 mg total) by mouth See administration instructions. In addition to 100 mg for 150 mg daily 90 each 1 03/22/20 25 025 Active lisinopril (PRINIVIL,ZESTRI L) 40 mg tablet TAKE 1 TABLET BY MOUTH DAILY 90 tablet 10/19/20 24 025 Discontin ued(Reord er) oxyCODONE (ROXICODONE) 10 mg immediate release tabletIndication s:Other chronic pain Take 1 tablet (10 mg total) by mouth 3 (three) times a day. Max Daily Amount: 30 mg 84 tablet 02/23/20 25 025 Discontin ued(Reord er) Active Problems Problem Noted Date Diagnosed Date [...] episode of recurrent ma yolande depressive disorder (CMS/HCC V24) 09/05/2023 Prediabetes 08/27/2022 Anemia 08/27/2022 Other chronic pain 08/27/2022 Arthritis of both temporomandibular joints 04/26 Atherosclerosis of arteries 02/08/2021 Aortic aneurysm ([facility]/HCC V24) 09/07/2019 Overview (11/02/2024): 4cm on echo 2019 Assessment & Plan (11/25/2024 4:44 PM EST): Ascending aorta size is minimally increased. There is no need for yearly CT to minimize radiation exposure unless there is alternative reason for CT yearly. Fatty liver 01/30/2019 Obesity (BMI 30.0-34.9) 01/12/2019 Adrenal mass (CMS/HCC V24) 04/09/2018 Abdominal aneurysm (CMS/HCC V24) 12/25/2015 TIA (transient ischemic attack) 08/17/2015 [...] Encounters Date Type Department Care Team Description 03/22/2025 9:30 AM EDT Office Visit Adult Medicine - [place] [address] [place] [id number] Brody Alves PA Acute meniscal tear of left knee, initial encounter (Primary Dx); Other chronic pain; Pure hypercholesterolemia; Prediabetes; Aneurysm of ascending aorta without rupture (CMS/HCC V24); Essential hypertension, benign; Encounter for long-term (current) use of high-risk medication 01/11/2025 9:30 AM EST Telemedicine Adult Medicine - [place] [address] [place] [id number] Brody Alves PA Essential hypertension, benign (Primary Dx); Pure hypercholesterolemia; Frequent ventricular premature beats; Anxiety and depression; Acute pain of left knee 01/11/2025 Telephone Adult Medicine - [place] [address] [facility] [place] [address] Brody Alves PA from Last 3 Months Immunizations Name Administration [...] Pfizer SARS-CoV-2 COVID-19, mRNA, LNP-S, preservative free 08/24/2021,08/17/2021,02/13/2021,2020 Pneumococcal conjugate 20 va lent (Prevnar 20, PCV 20) 2mo and older 11/08/2024 Tdap Tetanus diptheria acell ular pertussis (Boostrix; Adacel) 7yo and older 12/25/2015 Zoster Live 06/24/2016 Zoster recombinant (Shingrix ) 19yo and older 11/17/2016 Surgical History Surgery Date Site/Laterality Comments HERNIA REPAIR PROCEDURE: HISTORICAL HERNIA REPAIR/ING; COMMENT: left CARPAL TUNNEL RELEASE Right PROCEDURE: MD NEUROPLASTY &/TRANSPOS MEDIAN NRV CARPAL TUNNE Medical [...] :Aortic aneurysm (HCC); COMMENT: 4cm on echo 2018 [...] drink = 0.6 oz pur e alcohol) Housing Instability Answer Date Recorde d Are you worried that in the next 2 months you may not have stable housing? No 03/15/2025 Food Access & Nutrition Answer Date Rec orded Do you have access to a vari ety of food including fruits and vegetables? Yes 03/15/2025 Access to Healthcare Answer Date Record ed Within the last 3 months, ho w many times did you visit the emergency department for your medical care? 0 03/15/2025 Health Literacy Answer Date Recorded How often do you need to hav e someone help you when you read instructions, pamphlets, or other written material from your doctor or pharmacy? Never 03/15/2025 Caregiver: How often do you need to have someone help you when you read instructions, pamphlets, or other written material from your doctor or pharmacy? Not on file 03/15/2025 Financial Risk Answer Date Recorded How hard is it for you to pa y for the very basics like food, housing, medical care, and air conditioning / heating? Not very hard 03/15/2025 Transportation Answer Date Recorded Has the lack of transportati on kept you from meetings, work, or from getting things needed for daily living? No Has the lack of transportati on kept you from medical appointments or from getting medications? No 03/15/2025 Social Isolation Answer Date Recorded How often do you feel lonely or isolated from th ose around you? Never 03/15/2025 Food Risk Answer Date Recorded Within the past 12 months we worried whether our food would run out before we got money to buy more. Never true 03/15/2025 Within the past 12 months th e food we bought just didn't last and we didn't have money to get more. Never true 03/15/2025 Dependent Care Answer Date Recorded Do you need help finding or paying for care for your loved ones. For example, child and adolescent psychiatrist or elderly care for an older adult? No 03/15/2025 Education Answer Date Recorded Do you think completing more education or training, like finishing a GED, going to college, or learning a trade, would be helpful for you? No 03/15/2025 Employment and Income Answer Date Recor ded During the last four weeks, have you been actively looking for work? No 03/15/2025 Living Situation Answer Date Recorded What is your living situation? 0 03/15/2025 Sex and Gender Information Value Date Recorded Sex Assigned at Not on file Legal Sex Male 3:19 PM EST Gender Identity Not on file Sexual Orientation Not on file Obstetrics History Last Filed Vital Signs Vital Sign Reading Time Taken Comments Blood Pressure 146/73 03/22/2025 9:19 AM EDT Pulse 57 03/22/2025 9:19 AM EDT Temperature 36.2 ??C (97.2 ??F) 03/22/2025 9:19 AM ED T Respiratory Rate - - Oxygen Saturation 97% 11/25/2024 10:03 AM EST Inhaled Oxygen Concentration - - Weight 110 kg (243 lb) 03/22/2025 9:19 AM EDT Height 185.4 cm (6' 1 ) 03/22/2025 9:19 AM EDT Body Mass Index 32.06 03/22/2025 9:19 AM EDT Plan of Treatment Upcoming Encounters Date Type Department Care Team (Late st Contact Info) Description 05/17/2025 3:25 PM EDT Consult [facility] [address] [facility] [address] [place] [address] Alma Barba MD [address] [facility] [address] [place] [address] Health Maintenance Due Date Last Done Comments RSV Immunization Adult Patients (1 - Risk 60-74 years 1-dose series) 2016 Zoster Vaccines (3 of 3) 01/12/2017 11/17/2016, 06/2016 Colorectal Cancer Screening: Stool Based Tests (FOBT/FIT) 10/26/2022 Medicare Annual Wellness Visit 10/26/2022 COVID-19 Vaccine ( season) 2024 09/28/2022, 08/24/2021, 08/17/2021, Additional history exists DTaP,Tdap,and Td Vaccines (2 - Td or Tdap) 12/25/2025 12/25/2015 Hypertension/CHF/CAD Annual BMP Blood Test 02/23/2026 02/23/2025, 05/07/2024, 05/07/2024 Depression Screening 03/15/2026 03/15/2025, 11/08/20 24 Social Influencers of Health Screening 03/15/2026 03/15/2025 Falls Risk Assessment 03/22/2026 03/22/2025, 024 Cholesterol Screening (Lipid Panel) 02/23/2030 02/23/2025, 06/04/2023 [...] Procedure Name Priority Date/Time Associated Diagnosis Comments EXTERNAL MRI REPORT 03/05/2025 BASIC METABOLIC PANEL Routine 02/23/2025 9:16 AM EDT Cardiomegaly HEPATITIS C ANTIBODY Routine 02/23/2025 9:16 AM EDT Need for hepatitis C screening test LIPID PANEL WITH REFLEX TO DIRECT LDL Routine 02/23/2025 9:16 AM EDT Pure hypercholesterolemia HM COLONOSCOPY Routine 10/20/2023 from Last 3 Months or Most Recently Relevant to Health Maintenance Results * External MRI Report (03/05/2025) Anatomical Region Laterality Modality Magnetic Resonan ce Provider [facility] PROCEDURES Final Result * Hepatitis C antibody (02/23/2025 9:16 AM EDT) Hepatitis C Antibody Negative Negative LAB CHEMISTRY METHOD 02/23/2025 4:13 PM EDT [facility] Blood Venous blood specimen / Unknown Venipuncture / Unknown 02/23/2025 9:16 AM EDT 02/23/2025 9:16 AM EDT Brody CHUNG LAB BLOOD ORDERABLES Final Res ult [facility] [address] [place] [address], [place] [phone] * Lipid panel with reflex to direct LDL (02/23/2025 9:16 AM EDT) Cholesterol 160 0 - 200 mg/dL LAB CHEMISTRY METHOD 02/23/2025 2:31 PM EDT [facility] Triglycerides 99 0 - 150 mg/dL LAB CHEMISTRY METHOD 02/23/2025 2:31 PM EDT [facility] HDL 53 >=40 mg/dL LAB CHEMISTRY METHOD 02/23/2025 2:31 PM EDT [facility] LDL Calculated 87 0 - 100 mg/dL LAB CHEMISTRY METHOD 02/23/2025 2:31 PM EDT [facility] VLDL Cholesterol Joy 19.8 mg/dL LAB CHEMISTRY METHOD 02/23/2025 2:31 PM EDT [facility] Non HDL Chol. (LDL+VLDL) 107 <145 mg/dL LAB CHEMISTRY METHOD 02/23/2025 2:31 PM EDT [facility] Chol/HDL Ratio 3.0 0.0 - 4.4 LAB CHEMISTRY METHOD 02/23/2025 2:31 PM EDT [facility] Blood Venous blood specimen / Unknown Venipuncture / Unknown 02/23/2025 9:16 AM EDT 02/23/2025 9:16 AM EDT us Brody CHUNG LAB BLOOD ORDERABLES Final Res ult [facility] [address] [place] [address], [place] [phone] * Basic metabolic panel (02/23/2025 9:16 AM EDT) Sodium 140 133 - 145 mmol/L LAB CHEMISTRY METHOD 02/23/2025 2:31 PM [facility] Potassium 4.0 3.5 - 5.5 mmol/L LAB CHEMISTRY METHOD 02/23/2025 2:31 PM [facility] Chloride 107 96 - 110 mmol/L LAB CHEMISTRY METHOD 02/23/2025 2:31 PM [facility] CO2 28 21 - 32 mmol/L LAB CHEMISTRY METHOD 02/23/2025 2:31 PM [facility] Anion Gap 5 3 - 11 LAB CHEMISTRY METHOD 02/23/2025 2:31 PM [facility] Glucose 93 70 - 100 mg/dL LAB CHEMISTRY METHOD 02/23/2025 2:31 PM [facility] BUN 12 5 - 25 mg/dL LAB CHEMISTRY METHOD 02/23/2025 2:31 PM [facility] Creatinine 0.93 0.70 - 1.30 mg/dL LAB CHEMISTRY METHOD 02/23/2025 2:31 PM [facility] eGFR 89 >=60 mL/min/1. 73m2 LAB CHEMISTRY METHOD 02/23/2025 2:31 PM [facility] Comment:Calculation based on the??Chronic Kidney Disease Epidemiology Collaboration (CKD-EPI) equation refit??without adjustment for race. BUN/Creatinine Ratio 12.9 LAB CHEMISTRY METHOD 02/23/2025 2:31 PM [facility] Calcium 9.7 8.5 - 10.5 mg/dL LAB CHEMISTRY METHOD 02/23/2025 2:31 PM [facility] Blood Venous blood specimen / Unknown Venipuncture / Unknown 02/23/2025 9:16 AM EDT 02/23/2025 9:16 AM EDT us Roel White MD LAB BLOOD ORDERABLES Final Resul t [facility] [address] [place] [address], * Colonoscopy (10/20/2023) Colonoscopy abstracted, no interpretation Anatomical Region Laterality Modality Other us Historical Provider HEALTH MAINTENANCE Final Result from Last 3 Months or Most Recently Relevant to Health Maintenance Insurance [employer] - [place] MEDICARE ADVANTAGE Care Teams Batch Trucker Relationship Specialty Start Date End Date Ariana Spear MD [address] [place] [id number] PCP - General Internal Medicine 11/04/24
--- NOTE | 2025-04-08 09:31 | MHC.OFFVIS ---
Vital Signs 04/08/25 09:34 Height 6 ft 1 in Weight 238 lb BMI 31.4 Intake Visit Reasons: OV- Left knee MRI review Intake Note: Jeanne is a 69 year old male who presents today for a Left Knee MRI Review. His pain started at the beginning of 2024 when he injured the knee at the gym. IMPRESSION: 1. Posterior horn medial meniscal tear with possible meniscocapsular component. 2. Poole's cyst Allergies No Known Allergies [No Known Allergies*] Allergy (Unverified 04/08/25 09:32) HPI HPI OV- Left knee MRI review: Details: Felipe is a 69 year old male who presents today for a Left Knee MRI Review. His pain started at the beginning of 2024 when he injured the knee at the gym. He describes sharp medial knee pain with twisintg activities. Also present when he initiates ambulation. He had a right knee partial medial meniscectomy several years ago and this feels similar. [facility] Medical History HTN (hypertension) with goal to be determined Thoracic aortic aneurysm (TAA) Social History Household Members: Spouse Housing: House Do you presently have visiting nurse or other home services: No Alcohol intake: never Patient Tobacco Use Status: Never used Tobacco service: No Current occupational status: employed Physical Exam Vital Signs: BMI result Body Mass Index 31.4 Extrem Other: No effusion left knee stable to varus and valgus stress + Medial Steinmen's and ttp medial joint line Results Reviewed Results Reviewed: I personally reviewed the MR images. IMPRESSION: 1. Posterior horn medial meniscal tear, complex. 2. Poole's cyst Assessment & Plan Assessment & Plan (1) Tear of medial meniscus of left knee: Code(s): S83.242A - Other tear of medial meniscus, current injury, left knee, initial encounter Category: Medical Plan: This is an active 70 yo with a left knee medial meniscus tear that has been symptomatic since November. He would like to be able to walk and exercise without sharp medial sided left knee pain. I reviewed his MRI with him and reviewed the treatment options. I recommend left knee arthroscopy with partial medial meniscectomy. He had a similar procedure on the c/l knee and did well. He undertands the surgery and the I discussed the risks benefits and alternatives including but not limited to the risk of pain, infection, stiffness, need for further surgery as well as potential medical complications such as blood clots, pulmonary embolism and cardiac complications. He has a h/o a thoracic aortic aneurysm and a reported TIA. I reviewed Neurology notes and there was no imaging evidence of a TIA in 2021 although slightly unclear clinically. He states he has been controlling his blood pressure. Obviously we will need some more information on his aneurysm history as there is nothing in the chart other than the diagnosis. Asuming this is obtained and he is low risk we will proceed forward with surgery. Coding Level of Care Code Est Pt Level 4 (32741) Diagnoses Tear of medial meniscus of left knee S83.242A
[2025-04-08 09:34] VITALS: BMI 31.4
== END 2025-04-08 10:03 | disposition home or self-care (01) ==
LOC: HO.HOS 09:09
PROVIDERS: PCP Internal Medicine; Visit Provider Orthopaedic Surgery
DX: S83.242A Other tear of medial meniscus, current injury, left knee, initial encounter (principal)
CPT/HCPCS: 99214

== ENCOUNTER → 2025-04-08 09:08 | Outpatient (BNVA) | payer MEDICARE, SELFPAY | PROVIDERS: PCP Internal Medicine; Visit Provider Orthopaedic Surgery | DX: S83.242A Other tear of medial meniscus, current injury, left knee, initial encounter (principal); X58.XXXA Exposure to other specified factors, initial encounter; Y93.9 Activity, unspecified; Y92.89 Other specified places as the place of occurrence of the external cause; Y99.9 Unspecified external cause status; Z71.2 Person consulting for explanation of examination or test findings | CPT/HCPCS: 99212 ==

== ENCOUNTER 2025-04-27 06:39 | Day surgery (SDC) | payer MEDICARE, SELFPAY ==
[2025-04-25 07:42] VITALS: BMI 31.7
--- NOTE | 2025-04-26 09:04 | P.CONAN_ITS ---
Documented by User: Joceline Strange NP 04/26/25 09:16 HPI - Anesthesia Eval Consult details Narrative: 70yo M for Left Knee Arthroscopy Follow[facility]. Last office visit 11/2024. PVCs: burden > 20%, relatively asymptomatic and LV sys function nml. BiV size increased so sent for cardiac MRI (done 02/2025, see results below) AAA: minimally increase, no need for yearly CT HTN: overall well controlled PMFSH Active Problems Active Problems: All Active Problems Tear of medial meniscus of left knee (Acute) Internal derangement of left knee (Acute) Brain TIA (Acute) Past Medical History Medical History HTN (hypertension) with goal to be determined Thoracic aortic aneurysm (TAA) Social History Social History Household Members: Spouse Housing: House Do you presently have visiting nurse or other home services: No Alcohol intake: never Patient Tobacco Use Status: Never used Tobacco Have you been hit, kicked, punched, or otherwise hurt by someone within the past year? If so, by whom?: No Are you DNR?: No Advance Directives: No Advance Directives Information Provided: Yes service: No Current occupational status: employed Meds Allergies Allergy/AdvReac Type Severity Reaction Status Date / Time No Known Allergies Allergy Unverified 04/08/25 09:32 [No Known Allergies*] Home Medications ?Medication ?Instructions ?Recorded ?Confirmed ?Last Taken ?Type aspirin 81 mg tablet,delayed 81 mg PO DAILY 11/01/22 11/01/22 04/26/25 History release atorvastatin 20 mg tablet 20 mg PO DAILY 11/01/22 11/01/22 10/31/22 History atorvastatin 40 mg tablet 40 mg PO DAILY 11/01/22 11/01/22 10/31/22 History fenofibrate nanocrystallized 145 145 mg PO DAILY 11/01/22 11/01/22 10/31/22 History mg tablet lisinopril 40 mg tablet 40 mg PO DAILY 11/01/22 11/01/22 10/31/22 History multivitamin 1 tab PO DAILY 11/01/22 11/01/22 10/31/22 History oxycodone 5 mg tablet 5 mg PO Q6H PRN pain 12/16/22 12/16/22 Unknown History tamsulosin 0.4 mg capsule 0.8 mg PO DAILY 11/01/22 11/01/22 10/31/22 History metoprolol tartrate 25 mg tablet mg PO 12/20/24 04/27/25 History sertraline 100 mg tablet mg PO DAILY 12/20/24 Unknown History Exam Height,Weight and Vital Signs: Height 6 ft 1 in Weight 108.862 kg Narrative Narrative: Cardiac MRI 02/2025 IMPRESSION: Poor overall study quality due to ectopy/arrhythmia which impaired cardiac gating and subsequently impaired quantification of chamber sizes and function. 1. Probably low normal left ventricular systolic function (visually estimated EF 50-55%) without obvious regional wall motion abnormalities on limited views. No evidence of delayed myocardial enhancement. Normal [place] T1 and T2 values. 2. Probably reduced right ventricular systolic function on limited views. 3. Visually normal atrial sizes 4. No evidence of significant valvular abnormality. Phase contrast flow quantitation to calculate regurgitant volumes was not performed. 5. No pericardial thickening, enhancement, or effusion. EKG 11/2024 SR with freq PVCs LAD ECHO 11/2024 LV cavity is mildly dilated. LV mild concentric hypertrophy. LV sys function is in the nml range with EF 60-65%. RWM cannot be adequately assessed d/t suboptimal visualization of endocardial border. Grade II diastolic dysfunction. RV cavity mildly enlarged. RV sys function is nml LA cavity is mildly dilated RA cavity is mildly dilated Sinus of Valsava dilated (4.2cm). Asc aorta dilated (4.0cm) Freq PVCs are present. A brief tachycardia during study. Compared with 2022, RV mildly enlarged Assessment and Plan Assessment Anesthesia Assessment: Chart Reviewed Documented by User: Eder Salazar MD 04/27/25 09:19 [facility] Past Medical History Medical History HTN (hypertension) with goal to be determined Thoracic aortic aneurysm (TAA) Family History Family history of problems with anesthesia: No Surgical History History of Problems with Anesthesia: No Social History Social History Household Members: Spouse Housing: House Do you presently have visiting nurse or other home services: No Alcohol intake: never Patient Tobacco Use Status: Never used Tobacco Have you been hit, kicked, punched, or otherwise hurt by someone within the past year? If so, by whom?: No Are you DNR?: No Advance Directives: No Advance Directives Information Provided: Yes service: No Current occupational status: employed Meds Allergies Allergy/AdvReac Type Severity Reaction Status Date / Time No Known Allergies Allergy Unverified 04/08/25 09:32 [No Known Allergies*] Home Medications ?Medication ?Instructions ?Recorded ?Confirmed ?Last Taken ?Type aspirin 81 mg tablet,delayed 81 mg PO DAILY 11/01/22 11/01/22 04/26/25 History release atorvastatin 20 mg tablet 20 mg PO DAILY 11/01/22 11/01/22 10/31/22 History atorvastatin 40 mg tablet 40 mg PO DAILY 11/01/22 11/01/22 10/31/22 History fenofibrate nanocrystallized 145 145 mg PO DAILY 11/01/22 11/01/22 10/31/22 History mg tablet lisinopril 40 mg tablet 40 mg PO DAILY 11/01/22 11/01/22 10/31/22 History multivitamin 1 tab PO DAILY 11/01/22 11/01/22 10/31/22 History oxycodone 5 mg tablet 5 mg PO Q6H PRN pain 11/01/22 11/01/22 Unknown History tamsulosin 0.4 mg capsule 0.8 mg PO DAILY 11/01/22 11/01/22 10/31/22 History metoprolol tartrate 25 mg tablet mg PO 12/20/24 04/27/25 History sertraline 100 mg tablet mg PO DAILY 12/20/24 Unknown History Exam Airway Mallampati Class: III TM Dist: >3cm Neck ROM: Full Loose/Missing/Broken Teeth: No Heart: Rrr with extrasystoly rare Lungs: CTA Assessment and Plan Assessment Anesthesia Assessment: Anesthesia Plan Discussed and PAT Visit Final Anesthetic Review Family History of Problems with Anesthesia: No History of Problems with Anesthesia: No NPO: Yes ASA Class: II Patient Risk: Low Procedure Risk: Low Anesthetic Plan Anesthetic Plan: GA Disposition: Standard PACU
[2025-04-27 07:01] VITALS: BP 180/92; PULSE 47; RESP 20; TEMP 36.6; O2SAT 98; BMI 31.1
[2025-04-27] MEDS: Lactated Ringers 1,000 ML 100 ML IVCONT (07:20)
--- NOTE | 2025-04-27 10:13 | MHC.SHP ---
Pre-Procedural Eval Section A - 24 Hr Update-Section A only Date of Service: 04/27/25 The patient is an INPATIENT: No Changes since office visit: No Cold of Flu in the past 2 weeks, No New Medical Problems, No Changes in Medication and No Patient answered all questions The patient has been examined within 24 hours of the surgical procedure. The History & Physical has been completed within 30 days and I have reviewed it.: Yes Section B - Complete if H&P > 30 days Chief Complaint: Other tear of medial meniscus, current injury, Allergies: Allergies Allergy/AdvReac Type Severity Reaction Status Date / Time No Known Allergies Allergy Unverified 04/08/25 09:32 [No Known Allergies*] Plan I have reviewed the history and physical and performed a pertinent physical examination on my patient. No changes have occurred unless specified. Time Spent With Patient Time: Total time managing care of this patient today ____ minutes.
--- NOTE | 2025-04-27 10:58 | PM.OP ---
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
[2025-04-27 11:08] VITALS: BP 128/79; PULSE 61; RESP 16; TEMP 36.2; O2SAT 94
[2025-04-27 11:13] VITALS: BP 138/86; PULSE 64; RESP 16; O2SAT 95
[2025-04-27 11:18] VITALS: BP 139/82; PULSE 64; RESP 16; O2SAT 96
[2025-04-27 11:23] VITALS: BP 141/72; PULSE 63; RESP 16; O2SAT 95
--- NOTE | 2025-04-27 11:23 | W.PM.OPN ---
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 A time-out was called to identify proper site proper procedure proper surgeon and IV antibiotics per weight were administered. I began by exsanguinating the limb and insufflating tourniquet to 300 mm Hg. Then made a standard anterolateral stab incision. The knee was insufflated with water and 30 degree arthroscope was placed. There was grade 1 fibrillations of the patella but overall suprapatellar pouch and the gutters were clean. There was a prominenet medial plica and G2/3 focal area of cartilage injury over the medail aspect of the anterior MFC. There was also a G3 lesion of the central portio on the trochlea measuring ~10 mm x 10mm. I descended into the medial compartment where I made my medial portal under direct visualization. There was a complex tear of the body and posterior horn of the medial meniscus with a flap slipepd into the cpasular recess. The root was intact and there was grade 1 changes in the tibial plateau but minimal. I used a combination of biter shaver and cautery to remove unstable portions of the meniscus. Approximately 30% meniscal volume was removed. Once I was satisfied with this the ACL was examined and found to be intact and the lateral compartment also was without the need for intervention. I then returned to the anterior compartment and used a shaver and cautery for a chondroplasty of the two femoral lesions. I also resected the abrading medial plica using a shaver and a wand. I then removed all instrumentation after all pictures were taken. I closed the portals with nylon. 25 mL of 2% Marcaine with epinephrine was injected into the joint and the surrounding soft tissues. Patient was then placed in sterile dressing extubated brought recovery room stable condition. There were no known complications.
[2025-04-27 11:37] VITALS: BP 141/70; PULSE 66; RESP 20; TEMP 36.6; O2SAT 97
[2025-04-27] MEDS: oxyCODONE HCl Immed Release 5 MG TABLET PO (11:41)
== END 2025-04-27 12:47 | disposition home or self-care (01) ==
PROVIDERS: PCP Internal Medicine; Visit Provider Orthopaedic Surgery
PROC: (CPT 29870; principal; 2025-04-27 09:30)
DX: S83.232A Complex tear of medial meniscus, current injury, left knee, initial encounter (principal); M71.22 Synovial cyst of popliteal space [Baker], left knee; M94.262 Chondromalacia, left knee; M67.52 Plica syndrome, left knee; X50.1XXA Overexertion from prolonged static or awkward postures, initial encounter; Y93.B9 Activity, other involving muscle strengthening exercises; Y92.39 Other specified sports and athletic area as the place of occurrence of the external cause; Y99.9 Unspecified external cause status; I10 Essential (primary) hypertension; I71.20 Thoracic aortic aneurysm, without rupture, unspecified; Z79.82 Long term (current) use of aspirin; Z79.899 Other long term (current) drug therapy; Z98.890 Other specified postprocedural states
CPT/HCPCS: 29881; J0131; J0171; J0690; J1100; J2003; J2250; J2704; J2795; J3010

== ENCOUNTER → 2025-04-27 06:39 | Outpatient (BNV) | payer MEDICARE, SELFPAY | PROVIDERS: PCP Internal Medicine; Visit Provider Orthopaedic Surgery | DX: S83.232A Complex tear of medial meniscus, current injury, left knee, initial encounter (principal) | CPT/HCPCS: 29881 ==

== ENCOUNTER 2025-05-03 12:45 | Outpatient (AMB) | payer MEDICARE, SELFPAY ==
--- NOTE | 2025-05-03 12:50 | MHC.OFFVIS ---
Intake Visit Reasons: PO LT knee 04/27/25 NE Intake Note: Felipe is a 70 year old male who presents today for a post op appointment s/p left knee arthroscopy with partial medial meniscectomy 04/27/25 NE. Patient reports his ROM is tight when he is walking. Allergies No Known Allergies [No Known Allergies*] Allergy (Verified 05/03/25 13:01) HPI HPI PO LT knee 04/27/25 NE: Details: Mr. Phillips is a 70-year-old male who presents to the office today status post left knee arthroscopy for partial medial meniscectomy, chondroplasty and plica resection performed on 04/27/[address] Kelly. Patient is overall doing very well. He states that he has been active. He has some resolving ecchymosis at the thigh where the tourniquet was applied. [facility] Medical History HTN (hypertension) with goal to be determined Thoracic aortic aneurysm (TAA) Social History Household Members: Spouse Housing: House Do you presently have visiting nurse or other home services: No Alcohol intake: never Patient Tobacco Use Status: Never used Tobacco service: No Current occupational status: employed Review of Systems Const All systems reviewed & are unremarkable except as noted in HPI and below Physical Exam Extrem Other: Left knee incision sites are clean dry and intact. No surrounding erythema or drainage. No signs of infection. Range of motion 0-90 degrees. Moderate effusion. Calf is supple and nontender. NVI. Assessment & Plan Assessment & Plan (1) Tear of medial meniscus of left knee: Code(s): S83.242A - Other tear of medial meniscus, current injury, left knee, initial encounter Category: Medical Plan Mr. Phillips is a 70-year-old male who presents to the office today status post left knee arthroscopy for partial medial meniscectomy, chondroplasty and plica resection performed on 04/27/[address] Kelly. Patient is overall doing very well. He states that he has been active. He has some resolving ecchymosis at the thigh where the tourniquet was applied. While the office today, sutures removed and Steri-Strips were applied. Educated the patient that he should continue working on range of motion. Should he have a plateau in range of motion he will contact our office and I am happy to place a physical therapy order. Otherwise he will follow up PRN, sooner if needed. Coding Level of Care Code Global (22049) Diagnoses Tear of medial meniscus of left knee S83.242A
--- OUTSIDE RECORDS SUMMARY | 2025-05-03 14:27 | XMS_ITS | Clinical Summary ---
Author Organization [facility] [address] [facility] lding Address [address] [place] [address] Phone Care Team Providers Care Prospecting Driller Name Role Phone Ariana Spear MD Primary [...] MOUTH DAILY 90 tablet 04/18/20 25 Active lisinopril (PRINIVIL,ZESTRI L) 40 mg tablet Take 1 tablet (40 mg total) by mouth 1 (one) time each day. 90 tablet 1 03/22/20 25 Active sertraline (ZOLOFT) 50 mg tablet Take 1 tablet (50 mg total) by mouth See administration instructions. In addition to 100 mg for 150 mg daily 90 each 1 03/22/20 25 025 Active oxyCODONE (ROXICODONE) 10 mg immediate release tabletIndication s:Other chronic pain Take 1 tablet (10 mg total) by mouth 3 (three) times a day. Max Daily Amount: 30 mg 84 tablet 04/18/20 25 Active oxyCODONE (ROXICODONE) 10 mg immediate release tabletIndication s:Other chronic pain Take 1 tablet (10 mg total) by mouth 3 (three) times a day. 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 There is no need for yearly CT to minimize radiation exposure unless there is alternative reason for CT yearly. Fatty liver 01/30/2019 Obesity (BMI 30.0-34.9) 01/12/2019 Adrenal mass ([facility]/HCC V24) 04/09/2018 Abdominal aneurysm (CMS/HCC V24) 12/25/2015 [...] Encounters Date Type Department Care Team Description 04/08/2025 Telephone [facility] [address] [place] [address] Ariana Ardon MD Medical REcords 03/22/2025 9:30 AM EDT Office Visit Adult Medicine [place] [address] [place] [address] Brody Alves PA Acute meniscal tear of left knee, initial encounter (Primary Dx); Other chronic pain; Pure hypercholesterolemia; Prediabetes; Aneurysm of ascending aorta without rupture (CMS/HCC V24); Essential hypertension, benign; Encounter for long-term (current) use of high-risk medication from Last 3 Months Immunizations Name Administration [...] COMMENT: left CARPAL TUNNEL RELEASE Right PROCEDURE: GA NEUROPLASTY &/TRANSPOS MEDIAN NRV CARPAL TUNNE Medical [...] for your loved ones. For example, child care coordinator or elderly care for an older adult? [...] Upcoming Encounters Date Type Department Care Team ([facility] st Contact Info) Description 05/17/2025 3:25 PM EDT Consult [facility] - [address] [place] [address] Alma Barba MD [address] [place] [address] 06/15/2025 10:30 AM EDT Office Visit Adult Medicine - [place] [address] [place] [address] Brody Alves PA [address] [place] [address] Health Maintenance Due Date Last Done Comments [...] Procedure Name Priority Date/Time Associated Diagnosis Comments OPIATES CONFIRMATION, URINE Routine 04/14/2025 9:56 AM EDT Encounter for long-term (current) use of high-risk medication HEMOGLOBIN A1C Routine 04/14/2025 9:56 AM EDT Prediabetes DRUG ABUSE SCREEN EXPANDED WITH REFLEX CONFIRMATION, URINE Routine 04/14/2025 9:56 AM EDT Encounter for long-term (current) use of high-risk medication EXTERNAL MRI REPORT 03/05/2025 BASIC METABOLIC PANEL Routine 02/23/2025 9:16 AM EDT Cardiomegaly HEPATITIS C ANTIBODY Routine 02/23/2025 9:16 AM EDT Need for hepatitis C screening test LIPID PANEL WITH REFLEX TO DIRECT LDL Routine 02/23/2025 9:16 AM EDT Pure hypercholesterolemia HM COLONOSCOPY Routine 10/20/2023 from Last 3 Months or Most Recently Relevant to Health Maintenance Results * (ABNORMAL) Drug abuse screen expanded with reflex confirmation, urine (04/14/2025 9:56 AM EDT) Amphetamine Screen, Ur Negative Negative LAB CHEMISTRY METHOD 2:07 PM [facility] Comment:Certain OTC medicati ons containing ephedrine, phenylephrine, pseudoephedrine and phenylpropanolamine can cause false positive results. Barbiturate Screen, Ur Negative Negative LAB CHEMISTRY METHOD 5 2:07 PM [facility] Benzodiazepine Screen, Ur Negative Negative LAB CHEMISTRY METHOD 5 2:07 PM [facility] Cocaine Screen, Ur Negative Negative LAB CHEMISTRY METHOD 5 2:07 PM [facility] Opiate Screen, Ur Positive(A ) Negative LAB CHEMISTRY METHOD 5 2:07 PM [facility] Cannabinoid (THC) Screen, Ur Negative Negative LAB CHEMISTRY METHOD 5 2:07 PM [facility] Comment:Specimens from patie nts taking pantoprazole sodium (Protonix) have been shown to produce false positive results. Fentanyl, Ur Negative Negative LAB CHEMISTRY METHOD 5 2:07 PM [facility] Oxycodone Screen, Ur Positive(A ) Negative LAB CHEMISTRY METHOD 5 2:07 PM [facility] Urine Urine specimen obtained by clean catch procedure / Unknown Non-blood Collection / Unknown 04/14/2025 9:56 AM EDT 04/14/2025 9:56 AM EDT [facility] - 04/14/2025 2:07 PM EDT Assay cutoffs: Amphetamines ? 1000 ng/mL Barbiturates ?200 ng/mL Benzodiazepines ?? 200 ng/mL Cocaine ? 300 ng/mL Fentanyl ?1 ng/mL Opiates ? 300 ng/mL Oxycodone ? 100 ng/mL THC ?50 ng/mL Semi-quantitative assay for screening purposes only. Unconfirmed screening result should not be used for non-medical purposes. *POSITIVE RESULTS ARE AUTOMATICALLY SENT FOR ALTERNATE METHOD CONFIRMATION* us Brody CHUNG LAB URINE ORDERABLES Final Res ult [facility] ([facility]) [facility] [address] [place] [address], * Opiates confirmation, urine (04/14/2025 9:56 AM EDT) Pathologist [facility] Morphine Confirm, Urine Negative ng/mL 04/19/2025 12:56 AM EDT [facility] Codeine Confirm, Urine Negative ng/mL 04/19/2025 12:56 AM EDT [facility] Hydrocodone Confirm, Urine Negative ng/mL 04/19/2025 12:56 AM EDT [facility] Hydromorphone Confirm, Urine Negative ng/mL 04/19/2025 12:56 AM EDT [facility] Oxycodone Confirm, Urine 2673 ng/mL 04/19/2025 12:56 AM EDT [facility] Oxymorphone Confirm, Urine 4355 ng/mL 04/19/2025 12:56 AM EDT [facility] Creatinine 161 20 - 250 mg/dL 04/19/2025 12:56 AM EDT [facility] Adulterants Negative 04/19/2025 12:56 AM EDT [facility] Comment: ? Confirmation (LC/MS/MS) Decision Limits ?Morphine ?25 ng/mL ?Codeine ? 25 ng/mL ?Hydrocodone ? 25 ng/mL ?Hydromorphone ? 25 ng/mL ?Oxycodone ? 25 ng/mL ?Oxymorphone ? 25 ng/mL ?Adulterant Decision Limit: ? General Oxidants ? 200 ug/mL ?The adulterant assay tests for General Oxidants, ??including Chromates and Nitrites. ??Adulterants are ??substances either ingested or added directly to a ??urine specimen to prevent the detection of drug use. If applicable, any drug confirmation testing reported here was developed and the performance characteristics determined by [facility]. This confirmation testing has not been cleared or approved by the FDA. The laboratory is regulated under CLIA as qualified to perform high-complexity testing. This test is used for patient testing purposes. It should not be regarded as investigational or for research. Test performed at [facility], [address] , [place], [place] ??[address] ? [phone] Skye Hines MD, PhD - Senior Java Architect Urine Urine specimen obtained by clean catch procedure / Unknown Non-blood Collection / Unknown 04/14/2025 9:56 AM EDT 04/14/2025 2:07 PM EDT us Brody CHUNG LAB URINE ORDERABLES Final Res ult [facility] [address] [place], [place] [id number] * Hemoglobin A1c (04/14/2025 9:56 AM EDT) Hemoglobin A1C 5.8 <6.5 % LAB CHEMISTRY METHOD 04/14/2025 1:42 PM EDT [facility] ([facility] Mean Bld Glu Estim. 120 mg/dL LAB CHEMISTRY METHOD 04/14/2025 1:42 PM EDT [facility] Blood Venous blood specimen / Unknown Venipuncture / Unknown 04/14/2025 9:56 AM EDT 04/14/2025 9:56 AM EDT Brody CHUNG LAB BLOOD ORDERABLES Final Res ult Performing Organization Address [facility]/ZIP Co de Phone Number [facility] [address] [place] [address], [place] [phone] * External MRI Report (03/05/2025) Anatomical Region Laterality Modality Magnetic Resonan ce Provider [facility]G MRI PROCEDURES Final Result * Hepatitis C antibody (02/23/2025 9:16 AM EDT) [facility] Hepatitis C Antibody Negative Negative LAB CHEMISTRY METHOD 02/23/2025 4:13 PM EDT [facility] Blood Venous blood specimen / Unknown Venipuncture / Unknown 02/23/2025 9:16 AM EDT 02/23/2025 9:16 AM EDT Brody CHUNG LAB BLOOD ORDERABLES Final Res ult Performing Organization Address [facility]/ZIP Co de Phone Number [facility] [address] [place] [address], [place] [phone] * Lipid panel with reflex to direct LDL (02/23/2025 9:16 AM EDT) Pathologist [facility] Cholesterol 160 0 - 200 mg/dL LAB CHEMISTRY METHOD 02/23/2025 2:31 PM EDT [facility] Triglycerides 99 0 - 150 mg/dL LAB CHEMISTRY METHOD 02/23/2025 2:31 PM EDT [facility] HDL 53 >=40 mg/dL LAB CHEMISTRY METHOD 02/23/2025 2:31 PM EDT [facility] LDL Calculated 87 0 - 100 mg/dL LAB CHEMISTRY METHOD 02/23/2025 2:31 PM EDT [facility] VLDL Cholesterol Joy 19.8 mg/dL LAB CHEMISTRY METHOD 02/23/2025 2:31 PM T [facility] Non HDL Chol. (LDL+VLDL) 107 <145 mg/dL LAB CHEMISTRY METHOD 02/23/2025 2:31 PM [facility] Chol/HDL Ratio 3.0 0.0 - 4.4 LAB CHEMISTRY METHOD 02/23/2025 2:31 PM T [facility] Blood Venous blood specimen / Unknown Venipuncture / Unknown 02/23/2025 9:16 AM EDT 02/23/2025 9:16 AM EDT us Brody CHUNG LAB BLOOD ORDERABLES Final Res ult [facility] [address] [place] [address], * Basic metabolic panel (02/23/2025 9:16 AM EDT) Sodium 140 133 - 145 mmol/L LAB CHEMISTRY METHOD 02/23/2025 2:31 PM [facility] Potassium 4.0 3.5 - 5.5 mmol/L LAB CHEMISTRY METHOD 02/23/2025 2:31 PM [facility] Chloride 107 96 - 110 mmol/L LAB CHEMISTRY METHOD 02/23/2025 2:31 PM [facility] CO2 28 21 - 32 mmol/L LAB CHEMISTRY METHOD 02/23/2025 2:31 PM [facility] Anion Gap 5 3 - 11 LAB CHEMISTRY METHOD 02/23/2025 2:31 PM [facility] Glucose 93 70 - 100 mg/dL LAB CHEMISTRY METHOD 02/23/2025 2:31 PM [facility] BUN 12 5 - 25 mg/dL LAB CHEMISTRY METHOD 02/23/2025 2:31 PM EDT [facility] Creatinine 0.93 0.70 - 1.30 mg/dL LAB CHEMISTRY METHOD 02/23/2025 2:31 PM EDT [facility] eGFR 89 >=60 mL/min/1. 73m2 LAB CHEMISTRY METHOD 02/23/2025 2:31 PM EDT [facility] Comment:Calculation based on the??Chronic Kidney Disease Epidemiology Collaboration (CKD-EPI) equation refit??without adjustment for race. BUN/Creatinine Ratio 12.9 LAB CHEMISTRY METHOD 02/23/2025 2:31 PM EDT [facility] Calcium 9.7 8.5 - 10.5 mg/dL LAB CHEMISTRY METHOD 02/23/2025 2:31 PM EDT [facility] Blood Venous blood specimen / Unknown Venipuncture / Unknown 02/23/2025 9:16 AM EDT 02/23/2025 9:16 AM EDT Roel White MD LAB BLOOD ORDERABLES Final Resul t [facility] [address] [place] [address], * Colonoscopy (10/20/2023) Colonoscopy abstracted, no interpretation Anatomical Region Laterality Modality Other Historical Provider HEALTH MAINTENANCE Final Result from Last 3 Months or Most Recently Relevant to Health Maintenance Insurance [employer] [place] MEDICARE ADVANTAGE Care Teams Prospecting Driller Relationship Specialty Start Date End Date Ariana Spear MD [address] [place] [id number] PCP - General Internal Medicine 11/04/24
== END 2025-05-03 13:26 | disposition home or self-care (01) ==
LOC: HO.HOS 12:46
PROVIDERS: PCP Internal Medicine; Visit Provider Physician Assistant
DX: S83.242A Other tear of medial meniscus, current injury, left knee, initial encounter (principal)
CPT/HCPCS: 99024

== ENCOUNTER → 2025-05-03 12:45 | Outpatient (BNVA) | payer MEDICARE, SELFPAY | PROVIDERS: PCP Internal Medicine; Visit Provider Physician Assistant | DX: S83.242A Other tear of medial meniscus, current injury, left knee, initial encounter (principal); Z98.890 Other specified postprocedural states | CPT/HCPCS: 99212 ==